=== PATIENT | female | born 1950 | race Caucasian/White ===

== ENCOUNTER 2018-09-02 10:00 | Outpatient (CLI) | payer MEDICARE, OTHER ==
--- NOTE | 2018-09-03 10:17 | DEXA Report ---
Reason: AGE-RELATED OSTEOPOROSIS W Procedure Date: 09/02/2018 Accession Number: [id number] / [id number] Procedure: DEX - Dexa Spine and/or Hip CPT Code: FULL RESULT: EXAM: Dexa Spine and/or Hip DATE: 09/02/2018 10:28 AM CLINICAL HISTORY: AGE-RELATED OSTEOPOROSIS W TECHNIQUE: Dual energy x-ray absorptiometry (DXA) was performed on a CQuotient System. Regions measured are the AP Spine, femoral neck, and if needed forearm. COMPARISON: None. In accordance with the International Society for Clinical Densitometry (ISCD) guidelines, data from previous exams may be reanalyzed using current recommendations and techniques. This is done to allow a more accurate basis for comparison with the current study. FINDINGS: The data for the lumbar spine is as follows: BMD (g/cm/cm) T-SCORE Z-SCORE REGION L1 0.727 -3.4 -2.9 L2 0.901 -2.5 -2.1 L3 0.997 -1.7 -1.3 L4 0.867 -2.8 -2.3 TOTAL 0.879 -2.5 -2.1 NOTE: All evaluable vertebrae are used for classification The data for the hip is as follows: BMD (g/cm/cm) T-SCORE Z-SCORE REGION Neck 0.535 -3.6 -2.8 TOTAL 0.552 -3.6 -3.2 NOTE: The femoral neck or total proximal femur, whichever is lowest, is used for classification. IMPRESSION: THE WHO CLASSIFICATION BASED ON THE INTERNATIONAL REFERENCE STANDARD IS OSTEOPOROSIS. THE FRACTURE RISK IS HIGH. RECOMMENDATION: Patients with diagnosis of osteoporosis or osteopenia should have regular bone mineral density assessment. For those eligible for Medicare, routine testing is allowed once every 2 years. Testing frequency can be increased for patients who have rapidly progressing disease or for those who are receiving medical therapy to restore bone mass. COMMENT: World Health Organization (WHO) definitions for osteoporosis and osteopenia: NORMAL BMD: T-score at -1.0 or higher, fracture risk is low OSTEOPENIA BMD: T-score between -1.0 and -2.5, fracture risk is increased. OSTEOPOROSIS BMD: T-score at -2.5 or lower, fracture risk is high. National Osteoporosis Foundation recommends: 1. Obtain adequate dietary calcium (at least 1200 mg per day) and vitamin D (400-800 international units per day). 2. Participate, as appropriate, in regular weightbearing and muscle-strengthening exercise. 3. Avoid tobacco use and reduce alcohol and caffeine intake. 4. For more detailed information see the website at www.NOF.org.
== END 2018-09-02 10:01 | disposition home or self-care (01) ==
LOC: DI 10:00
PROVIDERS: ATTEND Internal Medicine
DX: M81.0 Age-related osteoporosis without current pathological fracture (principal)
CPT/HCPCS: 77080

== ENCOUNTER 2019-04-10 14:32 | Outpatient (CLI) | payer MEDICARE, OTHER ==
[2019-04-10 15:04] LABS: CALCIUM 9.4 mg/dL (8.5-10.3); CREATININE 0.8 mg/dL (0.4-1.0)
== END 2019-04-10 14:33 | disposition home or self-care (01) ==
LOC: LAB 14:32
PROVIDERS: ATTEND Internal Medicine
DX: M81.0 Age-related osteoporosis without current pathological fracture (principal)
CPT/HCPCS: 36415; 80048; 82306

== ENCOUNTER 2020-01-12 11:43 | Outpatient (CLI) | payer MEDICARE, OTHER ==
[2020-01-12 12:01] LABS: BASOPHILS # (AUTO) 0.1 10^3/uL (0.0-0.1); EOSINOPHILS # (AUTO) 0.8 10^3/uL (0.0-0.7); EOSINOPHILS % (AUTO) 9.7 %; HGB - HEMOGLOBIN 15.8 g/dL (12.0-16.0); LYMPHOCYTES % (AUTO) 35.3 %; MEAN CORPUSCULAR HEMOGLOBIN 30.6 pg (27.0-31.0); MEAN CORPUSCULAR HGB CONC 33.7 g/dL (32.0-36.0); MEAN CORPUSCULAR VOLUME 90.7 fL (81.0-99.0); MEAN PLATELET VOLUME 11.1 fL (7.9-10.8); MONOCYTES # (AUTO) 0.7 10^3/uL (0.0-1.0); NEUTROPHILS # (AUTO) 3.8 10^3/uL (1.5-6.6); NEUTROPHILS % (AUTO) 45.3 %; PLT - PLATELET COUNT 249 10^3/uL (130-450); RED BLOOD COUNT 5.17 10^6/uL (4.20-5.40); RED CELL DISTRIBUTION WIDTH 12.5 % (12.0-15.0); WHITE BLOOD COUNT 8.4 x10^3/uL (4.8-10.8)
[2020-01-12 12:03] LABS: BILIRUBIN,URINE NEGATIVE (NEGATIVE); GLUCOSE, URINE (UA) NEGATIVE (NEGATIVE); KETONES,URINE (UA) NEGATIVE (NEGATIVE); LEUKOCYTE ESTERASE, URINE NEGATIVE (NEGATIVE); NITRITE,URINE NEGATIVE (NEGATIVE); OCCULT BLOOD,URINE NEGATIVE (NEGATIVE); PROTEIN,URINE NEGATIVE (NEGATIVE); UROBILINOGEN,URINE 0.2 (NORMAL) E.U./dL (NORMAL)
[2020-01-12 12:08] LABS: CLARITY,URINE CLEAR (CLEAR)
[2020-01-12 12:10] LABS: BACTERIA,URINE Few /HPF (None Seen); RBC,URINE None Seen /HPF (0-5); SQUAMOUS EPITHELIAL CELL,UR FEW Squamous (<= Few)
[2020-01-12 12:30] LABS: CALCIUM 9.7 mg/dL (8.5-10.3); CREATININE 0.8 mg/dL (0.4-1.0)
== END 2020-01-12 11:44 | disposition home or self-care (01) ==
LOC: LAB 11:43
PROVIDERS: ATTEND Orthopaedic Surgery Orthopaedic Surgery of the Spine
DX: N39.0 Urinary tract infection, site not specified (principal); Z01.812 Encounter for preprocedural laboratory examination; Z01.818 Encounter for other preprocedural examination
CPT/HCPCS: 36415; 80048; 81001; 85025; 87086; 93005

== ENCOUNTER 2022-03-01 08:00 | Outpatient (CLI) | payer MEDICARE, OTHER ==
[2022-03-01 16:19] LABS: BILIRUBIN,URINE NEGATIVE (NEGATIVE); GLUCOSE, URINE (UA) NEGATIVE (NEGATIVE); KETONES,URINE (UA) NEGATIVE (NEGATIVE); LEUKOCYTE ESTERASE, URINE SMALL (NEGATIVE); NITRITE,URINE NEGATIVE (NEGATIVE); OCCULT BLOOD,URINE SMALL (NEGATIVE); PROTEIN,URINE NEGATIVE (NEGATIVE); UROBILINOGEN,URINE 0.2 (NORMAL) E.U./dL (NORMAL)
[2022-03-01 16:23] LABS: CLARITY,URINE HAZY (CLEAR)
[2022-03-01 16:44] LABS: SQUAMOUS EPITHELIAL CELL,UR FEW Squamous (<= Few); WBC,URINE >25 /HPF (0-5)
[2022-03-01 16:45] LABS: BACTERIA,URINE Few /HPF (None Seen)
== END 2022-03-01 23:59 | disposition home or self-care (01) ==
LOC: LAB.R 08:00
PROVIDERS: ATTEND Internal Medicine
DX: N39.0 Urinary tract infection, site not specified (principal)
CPT/HCPCS: 81001; 81003; 87086

== ENCOUNTER 2022-09-04 10:27 | Day surgery (SDC) | payer MEDICARE, OTHER ==
[2022-09-04] MEDS ORDERED: LACTATED RINGERS 1,000 ML IV ONE (10:45)
--- NOTE | 2022-09-04 11:06 | ANESTHESIA ---
Pre-Anesthesia VS, & Labs - Diagnosis screening exam - Procedure colonoscopy Vital Signs: Temp Pulse Resp BP Pulse Ox O2 Flow Rate 36.1 C L 93 18 149/90 H 94 0 09/04/22 10:46 09/04/22 10:46 09/04/22 10:46 09/04/22 10:46 09/04/22 10:46 09/04/22 10:46 Height: 5 ft 2 in Weight (kg): 113.9 kg Body Mass Index: 45.9 BMI Classification: Morbidly Obese - NPO >8 hours - Is Patient ?: No Home Medications and Allergies Home Medications: Ambulatory Orders Denosumab [Prolia] 60 mg SUBQ ONCE 08/28/22 Sumatriptan Succ/Naproxen Sod [Treximet 85-500 mg Tablet] 50 mg PO PRN PRN 08/28/22 Denosumab [Prolia] 60 mg SUBQ ONCE 08/28/22 Sumatriptan Succ/Naproxen Sod [Treximet 85-500 mg Tablet] 50 mg PO PRN PRN 08/28/22 Allergies/Adverse Reactions: Allergies Allergy/AdvReac Type Severity Reaction Status Date / Time No Known Drug Allergies Allergy Verified 08/28/22 11:14 Anes History & Medical History - Anesthetic History Anesthesia Complications: reports: No previous complications - Medical History Cardiovascular: reports: None Pulmonary: reports: None Gastrointestinal: reports: GERD, Chronic diarrhea Urinary: reports: Incontinence, Chronic bladder infection Musculoskeletal: reports: Osteoporosis, Chronic back pain Endocrine/Autoimmune: reports: None Blood Disorders: reports: None Skin: reports: Other Smoking Status: Never smoker Psychosocial: reports: No issues indicated History of Cancer?: No - Surgical History General: reports: Colonoscopy Eyes Ears Nose Throat (EENT): reports: Tonsil/Adenoidectomy Gynecologic: reports: Tubal ligation Exam General: Alert, Oriented x3, Cooperative, No acute distress Dental: WNL Mouth Openin Fingerbreadth Neck Mobility: Normal Mallampati classification: III Thyromental Distance: less than 4 cm Mental/Cognitive Status: Alert/Oriented X3, Normal for patient Plan Anesthesia Type: General, Total IV Consent for Procedure(s) Verified and Reviewed: Yes Code Status: Attempt Resuscitation ASA classification: 3-Severe systemic disease Is this case an emergency?: No
[2022-09-04] MEDS ORDERED: PROPOFOL 500 MG/50 ML 500 MG/50 ML VIAL ONE (11:50)
[2022-09-04] MEDS ORDERED: LACTATED RINGERS 800 ML IV ONE (12:02)
[2022-09-04 12:11] VITALS: BP 125/61
--- NOTE | 2022-09-04 12:59 | ANESTHESIA POST OP EVALUATION ---
Anesthesia Post Eval - Post Anesthesia Eval Vitals: Last Vital Signs Temp 36.3 C L 09/04/22 11:57 Pulse 85 09/04/22 11:57 Resp 16 09/04/22 11:57 BP 125/61 09/04/22 11:57 Pulse Ox 96 09/04/22 11:57 O2 Flow Rate 0 09/04/22 10:46 CV Function Including HR & BP: Stable Pain Control: Satisfactory Nausea & Vomiting: Negative Mental Status: Baseline Respiratory Status: Airway Patent Hydration Status: Satisfactory Anesthesia Complications: None
== END 2022-09-04 10:28 | disposition home or self-care (01) ==
LOC: SDS 10:27
PROVIDERS: ATTEND Surgery
DX: Z12.11 Encounter for screening for malignant neoplasm of colon (principal); E66.01 Morbid (severe) obesity due to excess calories; Z68.42 Body mass index [BMI] 45.0-49.9, adult
CPT/HCPCS: G0121; J7120

== ENCOUNTER 2023-05-08 07:50 | Outpatient (CLI) | payer MEDICARE, OTHER ==
--- NOTE | 2023-05-08 11:37 | Ultrasound Report ---
PROCEDURE: Abdomen Limited INDICATIONS: ELEVATED LIVER ENSYMES TECHNIQUE: Real-time focused scanning was performed of the abdomen, with image documentation. COMPARISONS: None. FINDINGS: Liver: Liver is at the upper limits of normal measuring 16.6 cm. The liver is increased in echogenic ity. Gallbladder: No gallbladder wall thickening. Sludge ball versus gallbladder polyp measuring 2.0 x 2.1 cm. Biliary ducts: Intrahepatic bile ducts are non-dilated. Extrahepatic bile duct caliber measures 5.7 mm. Normal is 6-7 mm or less in diameter, or 10 mm or less post-cholecystectomy. Pancreas: Visualized portions of the pancreas are sonographically normal. Right kidney: Normal in size and echotexture. Right kidney measures 12.6 cm long. No hydronephrosis or nephrolithiasis. No solid masses. No complex renal cystic lesions which require follow-up. Aorta: Visualized aorta is normal in caliber at less than 3 cm. Mid and distal aorta are not visuali zed. IVC: Intrahepatic inferior vena cava is patent. Miscellaneous: No free abdominal fluid. IMPRESSION: 1.Gallbladder sludge ball versus polyp measuring 2.1 cm. Recommend short-term follow-up ultrasound or MRCP for further evaluation. 2.Hepatic steatosis. Reviewed by: Harpal Hewitt MD on 05/08/2023 11:35 AM PDT Approved by: Harpal Hewitt MD on 05/08/2023 11:35 AM PDT Station ID: [id number]
== END 2023-05-08 07:51 | disposition home or self-care (01) ==
LOC: DI 07:50
PROVIDERS: ATTEND Internal Medicine
DX: R74.01 Elevation of levels of liver transaminase levels (principal); R93.3 Abnormal findings on diagnostic imaging of other parts of digestive tract; K76.0 Fatty (change of) liver, not elsewhere classified

== ENCOUNTER 2023-08-16 08:32 | Outpatient (CLI) | payer MEDICARE, OTHER ==
--- NOTE | 2023-08-17 02:06 | Ultrasound Report ---
PROCEDURE: Abdomen Limited INDICATIONS: POLYP OF GALLBLADDER TECHNIQUE: Ultrasound of the abdominal right upper quadrant was obtained with image documentation. COMPARISONS: None. FINDINGS: Liver: Liver shows diffusely increased echogenicity without focal mass lesion. No intrahepatic duct al dilation. Gallbladder: Biliary echogenic sludge noted within the gallbladder. There is gallbladder wall thicke willie measuring 3.6 mm it. The gallbladder neck and there is an echogenic structure which may reflect sludge ball versus polyp. No shadowing calculi Common Bile Duct: 6.7 mm. Pancreas: Unremarkable as visualized. Right Kidney: Appropriate in size and echotexture. No evidence of hydronephrosis. No shadowing calc ford. No solid or cystic mass lesion. IMPRESSION: Echogenic structure in the gallbladder neck. Differential would be polyp versus sludge ball. Additional biliary sludge noted in the fundus Reviewed by: Kelechi Valdes MD on 08/17/2023 1:05 AM BUFFY Approved by: Kelehci Valdes MD on 08/17/2023 1:05 AM BUFFY Station ID: [id number]
== END 2023-08-16 08:33 | disposition home or self-care (01) ==
LOC: DI 08:32
PROVIDERS: ATTEND Internal Medicine
DX: K82.4 Cholesterolosis of gallbladder (principal)

== ENCOUNTER 2023-10-03 06:52 | Emergency (ER) | payer MEDICARE, OTHER ==
[2023-10-03 07:54] LABS: BASOPHILS # (AUTO) 0.1 10^3/uL (0.0-0.1); BASOPHILS % (AUTO) 0.5 %; EOSINOPHILS # (AUTO) 0.4 10^3/uL (0.0-0.7); EOSINOPHILS % (AUTO) 3.9 %; HCT - HEMATOCRIT 47.6 % (37.0-47.0); HGB - HEMOGLOBIN 15.8 g/dL (12.0-16.0); LYMPHOCYTES # (AUTO) 2.7 10^3/uL (1.5-3.5); LYMPHOCYTES % (AUTO) 28.4 %; MEAN CORPUSCULAR HEMOGLOBIN 28.7 pg (27.0-31.0); MEAN CORPUSCULAR HGB CONC 33.2 g/dL (32.0-36.0); MEAN CORPUSCULAR VOLUME 86.4 fL (81.0-99.0); MONOCYTES # (AUTO) 0.6 10^3/uL (0.0-1.0); MONOCYTES % (AUTO) 6.5 %; NEUTROPHILS # (AUTO) 5.7 10^3/uL (1.5-6.6); NEUTROPHILS % (AUTO) 60.3 %; PLT - PLATELET COUNT 247 10^3/uL (130-450); RED BLOOD COUNT 5.51 10^6/uL (4.20-5.40); RED CELL DISTRIBUTION WIDTH 13.3 % (12.0-15.0); WHITE BLOOD COUNT 9.4 x10^3/uL (4.8-10.8)
--- NOTE | 2023-10-03 08:07 | ED Physician Documentation ---
PD HPI ABD PAIN - Stated complaint Stated Complaint: ABD/BACK PX,VOMITING - Chief complaint Chief Complaint: Abd Pain - History obtained from History obtained from: Patient - History of Present Illness Timing - onset: How many days ago (onset 2 am during night, awakening her.) Timing - details: Abrupt onset, Still present Quality: Aching, Dull, Pain. No: Cramping Location: Epigastric, LUQ Radiation: Lower back Associated symptoms: Nausea, Diarrhea. 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 HEENT: Tonsil/Adenoidectomy - Present Medications Home Medications: Ambulatory Orders Medication Instructions Recorded Confirmed Denosumab [Prolia] 60 mg SUBQ ONCE 08/28/22 10/03/23 Sumatriptan Succ/Naproxen Sod 50 mg PO PRN PRN 08/28/22 10/03/23 [Treximet 85-500 mg Tablet] Dicyclomine [Bentyl] 10 mg PO TID PRN #15 cap 10/03/23 HYDROcod/ACETAM 5/325 [[place] 5/325] 1 ea PO Q6H PRN #12 tablet 10/03/23 Pantoprazole [Protonix] 40 mg PO DAILY 30 Days #30 tablet 10/03/23 - Allergies Allergies/Adverse Reactions: Allergies Allergy/AdvReac Type Severity Reaction Status Date / Time No Known Drug Allergies Allergy Verified 10/03/23 07:14 - Social History Does the pt smoke?: No Smoking Status: Never smoker Does the pt drink ETOH?: No Does the pt have substance abuse?: No - Immunizations Immunizations are current?: No Immunizations: TDAP >10years/unknown - POLST Patient has POLST: No PD ED PE NORMAL - Vitals Vital signs reviewed: Yes - General General: Alert and oriented X 3, Well developed/nourished - HEENT HEENT: Ears normal, Pharynx benign - Neck Neck: Supple, no meningeal sign, No adenopathy - Cardiac Cardiac: No: RRR - Derm Derm: Normal color, Warm and dry Results - Vitals Vitals: Vital Signs - 24 hr 10/03/23 10/03/23 10/03/23 07:08 09:08 11:00 Temperature 36.7 C Heart Rate 70 88 82 Respiratory 18 17 17 Rate Blood Pressure 166/92 H 158/78 H 167/86 H O2 Saturation 100 97 98 Oxygen O2 Source Room air - Labs Labs: Laboratory Tests 10/03/23 10/03/23 10/03/23 07:30 07:30 07:30 WBC 9.4 RBC 5.51 H Hgb 15.8 Hct 47.6 H MCV 86.4 MCH 28.7 MCHC 33.2 RDW 13.3 Plt Count 247 MPV 12.0 H Neut # (Auto) 5.7 Lymph # (Auto) 2.7 Coffey # (Auto) 0.6 Eos # (Auto) 0.4 Baso # (Auto) 0.1 Absolute Nucleated RBC 0.00 Nucleated RBC % 0.0 Sodium 137 Potassium 3.7 Chloride 104 Carbon Dioxide 25 Anion Gap 8.0 BUN 17 Creatinine 0.8 Estimated GFR (MDRD) 71 L Glucose 131 H Calcium 9.6 Magnesium 1.9 Total Bilirubin 0.6 AST 26 ALT 32 Alkaline Phosphatase 65 Total Protein 7.0 Albumin 4.3 Globulin 2.7 Albumin/Globulin Ratio 1.6 Lipase 422 H Urine Color Urine Clarity Urine pH Ur Specific Rupert Urine Protein Urine Glucose (UA) Urine Ketones Urine Occult Blood Urine Nitrite Urine Bilirubin Urine Urobilinogen Ur Leukocyte Esterase Ur Microscopic Review Urine Culture Comments Ethyl Alcohol 10/03/23 10/03/23 07:40 09:24 WBC RBC Hgb Hct MCV MCH MCHC RDW Plt Count MPV Neut # (Auto) Lymph # (Auto) Coffey # (Auto) Eos # (Auto) Baso # (Auto) Absolute Nucleated RBC Nucleated RBC % Sodium Potassium Chloride Carbon Dioxide Anion Gap BUN Creatinine Estimated GFR (MDRD) Glucose Calcium Magnesium Total Bilirubin AST ALT Alkaline Phosphatase Total Protein Albumin Globulin Albumin/Globulin Ratio Lipase Urine Color LT. YELLOW Urine Clarity CLEAR Urine pH 6.5 Ur Specific Rupert 1.010 Urine Protein NEGATIVE Urine Glucose (UA) NEGATIVE Urine Ketones NEGATIVE Urine Occult Blood NEGATIVE Urine Nitrite NEGATIVE Urine Bilirubin NEGATIVE Urine Urobilinogen 0.2 (NORMAL) Ur Leukocyte Esterase NEGATIVE Ur Microscopic Review NOT INDICATED Urine Culture Comments NOT INDICATED Ethyl Alcohol < 10.0 - Rads (name of study) abd/pel CT Relevant Findings:: Prelim report reviewed (no acute process to account for pain. Fatty liver incidental. Pancreas normal.) PD Medical Decision Making - ED course Complexity details: reviewed results (CT showing no obvious cause for the pain. Fatty liver. pnacreas is normal. Lipase on blood testing 486, so seems pancreatitis. No meds to prokoke it, no alcohol use, no meds to consider effect (not found in [facility]). ), re-evaluated patient (pain signficantly improved to just minimal after IV fluids, toradl, zofran and dilaudid. ), considered differential (upper abd pain - abrupt onset. consider gallbladder, pancreatic, ulcer, GE viral, etc. Get labs, UA, and CT. ), d/w patient Departure - Departure Disposition: 01 Home, Self Care Clinical Impression: Acute upper abdominal pain, Elevated lipase Pancreatitis Qualifiers: Pancreatitis type: unspecified pancreatitis type Acute pancreatitis co mplication: no infection or necrosis Condition: Stable Record reviewed to determine appropriate education?: Yes Instructions: ED Epigastric Pain [facility] Follow-Up: Carolina Ocasio MD [Primary Care Provider] - Prescriptions: Dicyclomine [Bentyl] 10 mg PO TID PRN #15 cap PRN Reason: Abdominal Pain HYDROcod/ACETAM 5/325 [[place] 5/325] 1 ea PO Q6H PRN #12 tablet PRN Reason: Pain Pantoprazole [Protonix] 40 mg PO DAILY 30 Days #30 tablet Comments: Your CT scan did not show any obvious acute abnormality. You do have some distention of the gallbladder but no signs of wall thickening or inflammation of it. They commented appear similar to your ultrasound. Had recently. They do not see the polyp per se. Your pancreas appeared normal on the scan. On blood test you do have some elevation of your lipase which is a pancreatic enzyme. This suggests possibly some inflammation of that and that could account for the pain you are having. Causes of this could be there had been a gallbladder spasm which would sound like the pain you had and cause some back pressure and inflammation to the pancreas but not enough to show on the CT scan as a primary pancreatitis. For the episode today, I would suggest clear liquids only and no fatty foods for 1 to 2 days to allow less stimulation of the pancreas and gallbladder. Tylenol ibuprofen if needed for mild pains. You could then use antispasmodic of dicyclomine or pain medicine of hydrocodone to help with pains. You said you had some nausea medicine at home. Use it every 6-8 hours if needed for nausea. Your general description of less appetite and upset stomach with eating for the last month or more could suggest something different such as ulcer or gastritis. I would suggest pantoprazole daily for the next several weeks to see if acid reduction medicine helps with your symptoms generally. I sent your prescriptions to your preferred pharmacy. Follow-up with your primary care if not improved well over the next several days and return to the ER if needed. Follow-up otherwise for repeat gallbladder ultrasound etc. as intended. Forms: PCP List Discharge Date/Time: 10/03/23 11:30
[2023-10-03 08:08] LABS: ALBUMIN 4.3 g/dL (3.2-5.5); ALBUMIN/GLOBULIN RATIO 1.6 (1.0-2.2); BILIRUBIN,TOTAL 0.6 mg/dL (0.2-1.0); CALCIUM 9.6 mg/dL (8.5-10.3); CREATININE 0.8 mg/dL (0.6-1.3); POTASSIUM 3.7 mmol/L (3.5-4.5)
[2023-10-03] MEDS: SODIUM CHLORIDE 0.9% 1,000 ML IV STA (08:28)
[2023-10-03] MEDS ORDERED: iohexoL-300 100 ML VIAL ONE (08:33)
[2023-10-03] MEDS: ONDANSETRON 4 MG/2 ML VIAL IVP STA (08:34)
[2023-10-03] MEDS: KETOROLAC 15 MG/ML VIAL IVP STA (08:34)
[2023-10-03] MEDS: HYDROmorphone 1 MG/ML CARPUJECT IVP STA ×2 (08:35→11:42)
[2023-10-03 09:34] LABS: BILIRUBIN,URINE NEGATIVE (NEGATIVE); GLUCOSE, URINE (UA) NEGATIVE (NEGATIVE); KETONES,URINE (UA) NEGATIVE (NEGATIVE); LEUKOCYTE ESTERASE, URINE NEGATIVE (NEGATIVE); NITRITE,URINE NEGATIVE (NEGATIVE); OCCULT BLOOD,URINE NEGATIVE (NEGATIVE); PH,URINE 6.5 PH (5.0-7.5); PROTEIN,URINE NEGATIVE (NEGATIVE); UROBILINOGEN,URINE 0.2 (NORMAL) E.U./dL (NORMAL)
[2023-10-03 09:35] LABS: CLARITY,URINE CLEAR (CLEAR)
--- NOTE | 2023-10-03 10:03 | CT Report ---
PROCEDURE: Abdomen/Pelvis W INDICATIONS: RUQ to back pain onset overnight CONTRAST: Omni 300 100ml TECHNIQUE: After the administration of intravenous contrast, a CT scan of the abdomen and pelvis was performed. Images were recorded and evaluated at appropriate window settings. Reformats: coronal and sagittal. F or radiation dose reduction, the following was used: automated exposure control, adjustment of mA and /or kV according to patient size. COMPARISON: Right upper quadrant ultrasound dated 08/16/2023 FINDINGS: Image quality: Diagnostic. Lower chest: Unremarkable. Liver: No solid mass. Mild diffuse hepatic steatosis.. Gallbladder: Gallbladder is distended without significant gallbladder wall thickening noted. Biliary tree: Common duct measures up to 8 mm. On previous ultrasound it measured 6.7 mm. Spleen: No splenomegaly. Pancreas: No pancreatic ductal dilation. Adrenals: No adrenal nodule. Kidneys and ureters: No hydronephrosis. Bilateral extrarenal pelves. Mild prominence of both ureters. No renal cystic lesion which requires follow up. No solid mass. Stomach, bowel and peritoneum: No gastric or small bowel dilation. No abnormal wall thickening. No pa thologic free fluid. Lymph nodes: No central or retroperitoneal adenopathy. Vessels: No infrarenal aortic aneurysm. Patent portal vein. PELVIS Reproductive organs: Unremarkable. Bladder: No abnormal wall thickening, accounting for underdistention. Pelvic lymph nodes: No pelvic adenopathy by size criteria. Bones: No aggressive osseous abnormality. Lower lumbar decompression and posterior lateral shil[place] and pe dicle screw fixation. Large superior endplate L3 Schmorl's node. Other: No significant ventral or inguinal hernia. IMPRESSION: 1. Gallbladder is distended without significant gallbladder wall thickening. Common duct measures up to 8 mm, upper limits of normal, similar to the previous ultrasound. 2. Mild diffuse hepatic steatosis. Reviewed by: Cleveland Bernstein MD on 10/03/2023 10:02 AM PDT Approved by: Cleveland Bernstein MD on 10/03/2023 10:02 AM PDT Station ID: [id number]
[2023-10-03] MEDS: iohexoL-300 100 ML VIAL IVP ONE (10:16)
[2023-10-03 11:14] VITALS: BP 167/86; O2SAT 98
[2023-10-03] MEDS: PROCHLORPERAZINE 10 MG/2 ML VIAL IVP STA (11:41)
[2023-10-03] MEDS: FAMOTIDINE 20 MG/2 ML VIAL IVP STA (11:41)
== END 2023-10-03 11:30 | disposition home or self-care (01) ==
LOC: ED 06:52
DX: R10.13 Epigastric pain (principal); R10.12 Left upper quadrant pain; R10.11 Right upper quadrant pain; R74.8 Abnormal levels of other serum enzymes
CPT/HCPCS: 36415; 74177; 80053; 81003; 83690; 83735; 85025; 96374; 96375; 99284; G0480; J1170; Q9967; 81001; 82077; 87086

== ENCOUNTER 2024-06-21 03:49 | Inpatient (IN) ==
[2024-06-21] MEDS: fentaNYL 100 MCG/2 ML VIAL IVP PRN (05:53)
[2024-06-21] MEDS: ONDANSETRON 4 MG/2 ML VIAL IVP STA (05:53)
[2024-06-21 05:54] LABS: BASOPHILS % (AUTO) 0.2 %; EOSINOPHILS % (AUTO) 0.1 %; HCT - HEMATOCRIT 48.1 % (37.0-47.0); HGB - HEMOGLOBIN 15.8 g/dL (12.0-16.0); LYMPHOCYTES # (AUTO) 1.5 10^3/uL (1.5-3.5); LYMPHOCYTES % (AUTO) 14.1 %; MEAN CORPUSCULAR HEMOGLOBIN 29.8 pg (27.0-31.0); MEAN CORPUSCULAR HGB CONC 32.8 g/dL (32.0-36.0); MEAN CORPUSCULAR VOLUME 90.6 fL (81.0-99.0); MEAN PLATELET VOLUME 11.1 fL (7.9-10.8); MONOCYTES # (AUTO) 0.5 10^3/uL (0.0-1.0); MONOCYTES % (AUTO) 4.4 %; NEUTROPHILS # (AUTO) 8.9 10^3/uL (1.5-6.6); NEUTROPHILS % (AUTO) 80.7 %; PLT - PLATELET COUNT 231 10^3/uL (130-450); RED BLOOD COUNT 5.31 10^6/uL (4.20-5.40); RED CELL DISTRIBUTION WIDTH 12.4 % (12.0-15.0)
[2024-06-21 06:17] LABS: ALBUMIN 4.4 g/dL (3.2-5.5); ALBUMIN/GLOBULIN RATIO 1.6 (1.0-2.2); ALKALINE PHOSPHATASE 101 IU/L (42-121); ALT ALANINE AMINOTRANSFERASE 314 IU/L (10-60); AST ASPARTATE AMINOTRANSFERASE 510 IU/L (10-42); BILIRUBIN,TOTAL 2.4 mg/dL (0.2-1.0); BUN - BLOOD UREA NITROGEN 14 mg/dL (6-20); CALCIUM 9.3 mg/dL (8.5-10.3); CARBON DIOXIDE - CO2 25 mmol/L (21-32); CHLORIDE 106 mmol/L (101-111); CREATININE 0.8 mg/dL (0.6-1.3); GFR - MDRD 71 (>89); GLUCOSE 162 mg/dL (74-104); SODIUM 138 mmol/L (135-145); TOTAL PROTEIN 7.2 g/dL (6.4-8.9)
[2024-06-21] MEDS ORDERED: iohexoL-300 100 ML VIAL ONE (06:20)
[2024-06-21 06:33] LABS: LIPASE > 6000 U/L (11-82)
[2024-06-21] MEDS: iohexoL-300 100 ML VIAL IVP ONE (06:59)
--- NOTE | 2024-06-21 07:00 | ED Physician Documentation ---
History of Present Illness Stated complaint Stated Complaint: Chief complaint Chief Complaint: Abd Pain Additonal information Additional information: 74-year-old female presents with right upper quadrant and epigastric abdominal pain. Pain ongoing since 4:00 yesterday. Reports similar pain in the past associated with "gallbladder problems" but is not able to elucidate further what this means. States that the pain happened several years ago. Pain today is associate with nausea vomiting. Denies excessive alcohol intake, fatty foods, known history of peptic ulcer Disease or gastric reflux. [place] Coma Scale Assess Eye opening: Spontaneous Verbal response: Oriented Motor response: Obeys Commands Total score: 15 Review of Systems Status of ROS: 10 or more systems reviewed and unremarkable except as noted in history and below Gastrointestinal Reports: Abdominal pain, Nausea and Vomiting Meds/Allgy Home Medications Ambulatory Orders Medication Instructions Recorded Confirmed denosumab 60 mg/mL subcutaneous 60 mg subcut ONCE 08/1806/21/24 syringe (Prolia) acetaminophen 325 mg tablet (Pain 325 mg PO Q12H PRN p ain 06/21/24 06/21/24 Relief (acetaminophen)) ibuprofen 200 mg tablet 200 mg PO Q12H PRN pain 05/0 06/1206/21/24 sumatriptan succinate 50 mg tablet 50 mg PO ONCE PRN m igraine headache 06/21/24 06/21/24 Allergies Allergies Allergy/AdvReac Type Severity Reaction Status Date / Time No Known Drug Allergies Allergy Verified 02/22/24 11:38 PFSH Active Problems All Active Problems (Updated 06/22/24 @ 16:45 by GOLDEN Raymond) Hypokalemia (Acute) Acute gallstone pancreatitis (Acute) Chronic back pain (Acute) Acute cholecystitis (Acute) Medical History Medical History (Updated 06/22/24 @ 16:45 by GOLDEN Raymond) Osteoporosis History of migraine headaches Surgical History Surgical History (Updated 06/21/24 @ 14:22 by Matilde Lara DO) History of tubal ligation History of History of spinal fusion (~2022) L4-S1 (x2 surgeries) Social History Social History Smoking Status: Never smoker Second hand tobacco smoke exposure: No Do you dip or chew tobacco?: No Do you vape?: No Relationship: Level: Independent Home Mobility Equipment: Walker Do you feel safe in your home environment?: Yes Suffered physical, verbal, emotional, or financial abuse?: No History of Abuse: No POLST Patient has POLST: No Exam Exam Vital Signs: Vital Signs x48h Temp Pulse Resp BP Pulse Ox 06/21/24 06:41 78 22 141/77 H 99 06/21/24 04:42 81 22 160/87 H 99 06/21/24 04:38 36.8 C 81 22 167/69 H 99 Constitutional normal general appearance Patient in mild distress. 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 Relevant findings are: Sinus rhythm with rate 68 bpm. Normal axis. Normal TX, QRS, QTc intervals. No ST segment elevations or T wave inversions. Labs Labs: Laboratory Tests 06/21/24 06/21/24 05:41 06:00 WBC 11.0 H RBC 5.31 Hgb 15.8 Hct 48.1 H MCV 90.6 MCH 29.8 MCHC 32.8 RDW 12.4 Plt Count 231 MPV 11.1 H Neut # (Auto) 8.9 H Lymph # (Auto) 1.5 Cobb # (Auto) 0.5 Eos # (Auto) 0.0 Baso # (Auto) 0.0 Absolute Nucleated RBC 0.00 Nucleated RBC % 0.0 Sodium 138 Potassium 4.0 Chloride 106 Carbon Dioxide 25 Anion Gap 7.0 BUN 14 Creatinine 0.8 Estimated GFR (MDRD) 71 L Glucose 162 H Lactic Acid 1.7 Calcium 9.3 Total Bilirubin 2.4 H AST 510 H ALT 314 H Alkaline Phosphatase 101 Troponin I High Sens 4.4 Total Protein 7.2 Albumin 4.4 Globulin 2.8 Albumin/Globulin Ratio 1.6 Lipase > 6000 H PD Medical Decision Making ED course Complexity details: re-evaluated patient, considered differential and d/w patient ED course: 74 yo with abd pain, RUQ and epigastric tenderness. Labs consistant with pancreatitis with likely obstruction of CBD. CT and US pending. Given medicatin for pain control. Sighning out to on coming physician, see their documentation for further detail Discharge Plan Discharge Patient Disposition: 66 [facility] DC/Xfer Clinical Impression: Pancreatitis, Acute cholecystitis Interventions: ED Admission Assessment Last Done: 06/21/24 12:54
[2024-06-21] MEDS: cefTRIAXone 1 GM in SODIUM CHLORIDE 0.9% MINIBAG 100 ML IV STA (07:18)
[2024-06-21] MEDS: metroNIDAZOLE 500 MG/100 ML 500 MG/100 ML BAG IV ONE (07:51)
[2024-06-21] MEDS: HYDROmorphone 0.5 MG/0.5 ML SYRINGE IVP STA (09:10)
--- NOTE | 2024-06-21 09:23 | CT Report ---
PROCEDURE: CT Abdomen/Pelvis W INDICATIONS: RUQ abd pain CONTRAST: OMNI 300, 100 TECHNIQUE: After the administration of intravenous contrast, a CT scan of the abdomen and pelvis was performed. Images were recorded and evaluated at appropriate window settings. Reformats: coronal and sagittal. F or radiation dose reduction, the following was used: automated exposure control, adjustment of mA and /or kV according to patient size. COMPARISON: CT abdomen and pelvis 10/03/2023. Abdominal ultrasound 08/16/2023. FINDINGS: Image quality: Diagnostic. Lower chest: Unremarkable. Liver: No solid mass. Suspect hepatic steatosis. Gallbladder: Increased conspicuity of the gallbladder wall. There are small layering calcified gallst ones at the fundus. Pericholecystic fluid is present, (/). Biliary tree: Within normal limits. Spleen: No splenomegaly. Pancreas: No pancreatic ductal dilation. Inflammatory change and fluid adjacent to the tail the pancr eas, (4/41). No loculated fluid collection. The pancreas enhances uniformly. Adrenals: No adrenal nodule. Kidneys and ureters: No hydronephrosis. No renal cystic lesion which requires follow up. No solid mas s. Stomach, bowel and peritoneum: There is inflammatory change about the second and third portions of th e duodenum. This is demonstrable by fat stranding and free fluid. No loculated fluid collection. No s mall bowel obstruction. Normal appendix. Stomach is not distended. No pneumoperitoneum. Lymph nodes: No central or retroperitoneal adenopathy. Vessels: No infrarenal aortic aneurysm. Patent portal vein. PELVIS Reproductive organs: Anteverted uterus. Bladder: No abnormal wall thickening. No stone. Pelvic lymph nodes: No pelvic adenopathy by size criteria. Bones: No aggressive osseous abnormality. L4-S1 pedicle screw fixation with intervertebral body space rs. Other: No significant ventral or inguinal hernia. IMPRESSION: 1. Inflammatory change about the pancreas. Suspect acute interstitial edematous pancreatitis. No locu lated fluid collection. 2. Pericholecystic fluid. Gallstones at the fundus. Findings raising the possibility of acute cholecy stitis. Changes could be secondary reactive. -Gallbladder ultrasound may be helpful for further evaluation. 3. Inflammatory change at the second and third portions of the duodenum in keeping with duodenitis. No significant discrepancy with the overnight preliminary interpretation. Discussed with emergency room provider. Reviewed by: Kieran Berry MD on 06/21/2024 9:22 AM PDT Approved by: Kieran Berry MD on 06/21/2024 9:22 AM PDT Station ID: [id number]
[2024-06-21] MEDS: HYDROmorphone 1 MG/ML SYRINGE IVP STA (10:52)
--- NOTE | 2024-06-21 11:18 | Ultrasound Report ---
PROCEDURE: US Abdomen Limited INDICATIONS: Gallstone pancreatitis, likely choledocholithiasis TECHNIQUE: Real-time focused scanning was performed of the abdomen, with image documentation. COMPARISONS: CT from same date. FINDINGS: Liver: Echogenic liver with mildly enlarged size measuring 15.9 cm. Gallbladder: Multiple gallstones within the gallbladder with stones at the neck of the gallbladder. T he gallbladder wall measures 8 mm. There is pericholecystic fluid. Biliary ducts: Intrahepatic bile ducts are non-dilated. Cystic duct caliber measures 8 mm. Pancreas: The pancreas is poorly visualized however this large and edematous with some peripancreati c fluid. IVC: Intrahepatic inferior vena cava is patent. Miscellaneous: No free abdominal fluid. IMPRESSION: Acute cholecystitis. Edematous pancreas with peripancreatic edema consistent with pancreatitis. Cystic duct measures 8 mm without distal stone identified by ultrasound. Reviewed by: Ld Ortega MD on 06/21/2024 10:16 AM BUFFY Approved by: Ld Ortega MD on 06/21/2024 10:16 AM BUFFY Station ID: [id number]
--- NOTE | 2024-06-21 11:43 | ED Physician Documentation ---
ED Addendum Addendum Addendum: I received signout from this patient from the overnight physician. In short, this patient presents with epigastric pain. There is concern for pancreatitis with elevated lipase and possible choledocholithiasis due to elevated liver enzymes. RUQ US was obtained and showed evidence of acute cholecystitis withou CBD dilation. I spoke to general surgeon Dr. Lara who recommended medicine admission and eventual cholecystectomy. Patient has already been given antibiotics for possible cholecystitis with ceftriaxone and metronidazole. She will be admitted to the medicine service for possible MRCP to fully evaluate for possible choledocholithiasis. She is afebrile without evidence of sepsis. Discharge Plan Discharge Patient Disposition: 68 [facility] DC/Xfer Clinical Impression: Pancreatitis, Acute cholecystitis
--- NOTE | 2024-06-21 12:43 | HISTORY & PHYSICAL EXAMINATION ---
Chief Complaint Chief Complaint Chief Complaint: abdominal pain History of Present Illness Admitted From Admitted From:: home History Obtained From History obtained from: patient History of Present Illness HPI Comment/Other: 74-year-old female who presents to the emergency department today with worsening abdominal pain for approximately 24 hours. The pain is in the epigastrium. She states that she has had a worse diet in the last week or so. She knows she is supposed to stay away from fatty foods and spicy foods but unfortunately she had several meals that were outside of these parameters in the last week. Yesterday afternoon about 4 PM the pain became very bad. It is in her epigastrium and into the right and left upper quadrants. She also has noted some radiation into her back. She has not had any fevers she is having nausea without vomiting. She has noted over the last few years that her stools have been industrial/organizational psychologist in color. She is also known that she has had some sort of a gallbladder problem but it seems to get a little bit worse and then she is better with her diet and it gets a little bit better and she is able to ignore it. She also has a history of hepatic steatosis. She has a history of metformin spine disease. She has had several surgeries. She has chronic weakness of her lower extremities and she walks with a walker. It is been like this for 11 years. She has chronic urinary incontinence. Her surgical history consists of a and tubal ligation. L4-S1 spinal fusion- she has had multiple spine surgeries and has residual lower ext weakness as a result. She does not have any chronic neurogenic bowel or bladder issues She denies heart and lung disease. Her mother had a cholecystectomy She lives with her daughter. She does not smoke. she does not drink alcohol. she has no tobacco history. she does not use cannabis. she drives, and walks daily [place] [employer] and swims 3 times a week in the pool there. Code status: Full code. daughter Rosita Flaherty would make her medical decsions if she were unable to do so. Meds/Allgy Home Medications Ambulatory Orders Medication Instructions Recorded Confirmed denosumab 60 mg/mL subcutaneous 60 mg subcut ONCE 08/28/22 10/03/23 syringe (Prolia) sumatriptan 85 mg-naproxen 500 mg 50 mg PO PRN PRN As Needed Per 08/28/22 10/03/23 tablet (Treximet) Provider Orders dicyclomine 10 mg capsule 10 mg PO TID PRN Abdominal Pain 10/03/23 #15 caps hydrocodone 5 mg-acetaminophen 325 1 ea PO Q6H PRN Pain #12 tabs 10/03/23 mg tablet pantoprazole 40 mg tablet,delayed 40 mg PO DAILY 30 days #30 tabs 10/03/23 release cephalexin 500 mg capsule 500 mg PO QID 5 days #20 caps 02/22/24 doxycycline hyclate 100 mg capsule 100 mg PO BID 5 days #10 caps 02/22/24 terbinafine HCl 1 % topical cream 1 applic topical BID #15 grams 02/22/24 Allergies Allergies Allergy/AdvReac Type Severity Reaction Status Date / Time No Known Drug Allergies Allergy Verified 02/22/24 11:38 PFSH Active Problems All Active Problems (Updated 06/21/24 @ 14:22 by Matilde Lara DO) Acute gallstone pancreatitis (Acute) Chronic back pain (Acute) Acute cholecystitis (Acute) Medical History Medical History (Updated 06/21/24 @ 14:22 by Matilde Lara DO) Osteoporosis History of migraine headaches Surgical History Surgical History (Updated 06/21/24 @ 14:22 by Matilde Lara DO) History of tubal ligation History of History of spinal fusion (~2022) L4-S1 (x2 surgeries) Social History Social History Smoking Status: Never smoker Relationship: Do you feel safe in your home environment?: Yes Suffered physical, verbal, emotional, or financial abuse?: No History of Abuse: No POLST Patient has POLST: No Review of Systems Status of ROS: 10 or more systems reviewed and unremarkable except as noted in history and below Constitutional Reports: Fatigue; Denies: Fever or Chills Eyes Reports: Change in vision Cardiovascular Denies: chest pain, palpitations, edema, swelling of feet/ankles or shortness of breath with exertion Respiratory Reports: Pain on inspiration; Denies: Shortness of breath Gastrointestinal Reports: Abdominal pain, Nausea and White/light colored stool (industrial/organizational psychologist in color- yellow); Denies: Vomiting, Constipation, Change in bowel habits or Fatty stool Genitourinary Reports: Urinary incontinence (chronic- wears a pad. no choluria) Musculoskeletal Reports: Back pain (chronic) Neurological Reports: Other (chronic leg weakness, right >Left); Denies: Headache Endocrine Reports: Fatigue Prior Level of Functionality: drives, walks with a walker. performs all her own ADLs. Goood exercise tolerance without chest pain or unusual dyspnea. Walks with her dogs daily and swims 3x weekly. Exam Exam Vital Signs: Vital Signs x48h Temp Pulse Resp BP BP Pulse Ox 06/21/24 13:33 36.9 C 18 153/80 H 99 06/21/24 12:54 78 16 142/82 H 98 06/21/24 11:57 85 16 144/65 H 98 06/21/24 10:00 71 18 188/87 H 98 06/21/24 08:00 74 15 142/88 H 99 Constitutional normal general appearance and no apparent distress HENMT normocephalic, hearing grossly normal bilaterally and oral mucous membranes normal Eyes conjunctivae normal and no scleral icterus Neck/C-Spine visual inspection normal and trachea midline Chest inspection of chest normal Respiratory breath sounds equal bilaterally, normal respiratory effort and clear to auscultation bilaterally Cardiovascular normal heart rate noted and regular rhythm noted Gastrointestinal abdomen normal to inspection (obese) and abdomen soft to palpation tenderness in the epigastrium +Ruggiero's sign Back/Pelvis spine normal to inspection Extremities normal to inspection, normal to palpation and no tenderness Neurology oil agent II-XII intact and GCS 15 Psychiatry mental status grossly normal, oriented x3 and thought process normal Skin skin color normal Conclusion/Plan Problem List (1) Pancreatitis: Plan: presents to the ED with epigstric abdominal pain since about 4pm on day prior, after several episodes of non adherance to a low fat non spicy diet. she has radiation of her pain to her back. She is nauseated. She has inflammation around her pancreatitis on CT of the abdomen and her lipase is >6000. there is no biliary ductal dilation on imaging. She does have an elevated bili of 2.4 indicating probable biliary pancreatitis. I have ordered repeat CMP in the AM. Dr Lara would like repeat lipase in the AM. I have placed this patient on a clear liquid diet with supplemental IVF. I have ordered medications for pain and nausea. I have ordered MRCP of the abdomen to further investigate for choledocholithiasis. (2) Acute cholecystitis: Plan: She has epigastric and RUQ abdominal pain w nausea. She has not vomited. she has a leukocytosis of 11. she has pericholecystic fluid seen on CT of the abdomen. She has multiple gallstones in the neck of the gallbladder without ductal dilation. I will repeat CBC in the AM. I have continued rocephin and flagyl which were started in the ED. I have discussed this patient with Dr Lara of general surgery. This patient would benefit from cholecystectomy to treat her cholecystitis, once her biliary pancreatitis is somewhat improved. She will be followed by general surgery. (3) Chronic back pain: Plan: s/p spinal fusion. She is not on any chronic medications, aside from tylenol and ibuprofen as needed. She is dependent on a walker for ambulation ,but otherwise does well and is independent in her functioning. Plan Admission for pancreatitis with elevated lipase, this is likely biliary pancreatitis. MRCP to evaluate for choledocholithiasis. She also has acute cholecystitis. I have placed her on rocephin and flagyl to treat this and consulted with general surgery for cholecystectomy . I have spent 78 minutes in the care of this patient today. This includes time [id number], review and ordering of diagnostic imaging and laboratory studies and consultation with other providers. Monitoring the patient's signs symptoms, evaluation of medication effectiveness and patient's response to treatment. Lab Results Lab results reviewed: Yes 06/21/24 05:41 06/21/24 05:41 EKG Results EKG Findings: sinus rhythm. Core Measures Anticipated LOS I expect patient to be DC'd or transferred within 96 hours.: Yes DVT/VTE - Prophylaxis VTE/DVT Device ordered at admit?: Yes VTE/DVT Prophylaxis med ordered at admit?: Yes
[2024-06-21] MEDS ORDERED: SODIUM CHLORIDE FLUSH 0.9% 10 ML SYRINGE IVP PRN (12:56)
[2024-06-21] MEDS: metroNIDAZOLE 500 MG/100 ML 500 MG/100 ML BAG IV SCH (13:46)
[2024-06-21] MEDS: SODIUM CHLORIDE 0.9% 1,000 ML IV SCH (13:47)
--- NOTE | 2024-06-21 14:05 | CONSULTATION NOTE ---
History of Present Illness History of Present Illness HPI Comment/Other: 74F admitted this afternoon with gallstone pancreatitis to the Hospitalist service. She started having epigastric pain and nausea about 24hrs ago. She had emesis x1, one loose stool but no ongoing diarrhea. No fevers. She has had 2-3 episodes of similar but less severe epigastric pain that radiates to the back over the last year, x2 ED visits but no admissions. RUQUS x2 showing sludge and CT abd/pel x1 showing GB distention. [place] episode likely associated with pancreatitis as her Lipase was 422 (LFTs normal) at that visit. Lives in separate apt on property with her daughter, swims regularly, no chronic cardiopulmonary disease, not diabetic. PFSH Active Problems All Active Problems (Updated 06/21/24 @ 14:22 by Matilde Lara DO) Acute gallstone pancreatitis (Acute) Chronic back pain (Acute) Acute cholecystitis (Acute) Medical History Medical History (Updated 06/21/24 @ 14:22 by Matilde Lara DO) Osteoporosis History of migraine headaches Surgical History Surgical History (Updated 06/21/24 @ 14:22 by Matilde Lara DO) History of tubal ligation History of History of spinal fusion (~2022) L4-S1 (x2 surgeries) Social History Social History Smoking Status: Never smoker Second hand tobacco smoke exposure: No Do you dip or chew tobacco?: No Do you vape?: No Relationship: Level: Independent Home Mobility Equipment: Walker Do you feel safe in your home environment?: Yes Suffered physical, verbal, emotional, or financial abuse?: No History of Abuse: No POLST Patient has POLST: No Meds/Allgy Home Medications Ambulatory Orders Medication Instructions Recorded Confirmed denosumab 60 mg/mL subcutaneous 60 mg subcut ONCE 08/28/22 10/03/23 syringe (Prolia) sumatriptan 85 mg-naproxen 500 mg 50 mg PO PRN PRN As Needed Per 08/28/22 10/03/23 tablet (Treximet) Provider Orders dicyclomine 10 mg capsule 10 mg PO TID PRN Abdominal Pain 10/03/23 #15 caps hydrocodone 5 mg-acetaminophen 325 1 ea PO Q6H PRN Pain #12 tabs 10/03/23 mg tablet pantoprazole 40 mg tablet,delayed 40 mg PO DAILY 30 days #30 tabs 10/03/23 release cephalexin 500 mg capsule 500 mg PO QID 5 days #20 caps 02/22/24 doxycycline hyclate 100 mg capsule 100 mg PO BID 5 days #10 caps 02/22/24 terbinafine HCl 1 % topical cream 1 applic topical BID #15 grams 02/22/24 Allergies Allergies Allergy/AdvReac Type Severity Reaction Status Date / Time No Known Drug Allergies Allergy Verified 02/22/24 11:38 Results Lab Results 06/21/24 05:41 06/21/24 05:41 Other Lab Results: Lab Results x24hrs 06/21/24 06/21/24 Range/Units 06:00 05:41 WBC 11.0 H (4.8-10.8) x10^3/uL RBC 5.31 (4.20-5.40) 10^6/uL Hgb 15.8 (12.0-16.0) g/dL Hct 48.1 H (37.0-47.0) % MCV 90.6 (81.0-99.0) fL MCH 29.8 (27.0-31.0) pg MCHC 32.8 (32.0-36.0) g/dL RDW 12.4 (12.0-15.0) % Plt Count 231 (130-450) 10^3/uL MPV 11.1 H (7.9-10.8) fL Neut # (Auto) 8.9 H (1.5-6.6) 10^3/uL Lymph # (Auto) 1.5 (1.5-3.5) 10^3/uL Simpson # (Auto) 0.5 (0.0-1.0) 10^3/uL Eos # (Auto) 0.0 (0.0-0.7) 10^3/uL Baso # (Auto) 0.0 (0.0-0.1) 10^3/uL Absolute Nucleated RBC 0.00 x10^3/uL Nucleated RBC % 0.0 /100WBC Sodium 138 (135-145) mmol/L Potassium 4.0 (3.5-4.5) mmol/L Chloride 106 (101-111) mmol/L Carbon Dioxide 25 (21-32) mmol/L Anion Gap 7.0 (6-13) BUN 14 (6-20) mg/dL Creatinine 0.8 (0.6-1.3) mg/dL Estimated GFR (MDRD) 71 L (>89) Glucose 162 H (74-104) mg/dL Lactic Acid 1.7 (0.5-2.2) mmol/L Calcium 9.3 (8.5-10.3) mg/dL Total Bilirubin 2.4 H (0.2-1.0) mg/dL AST 510 H (10-42) IU/L ALT 314 H (10-60) IU/L Alkaline Phosphatase 101 (42-121) IU/L Troponin I High Sens 4.4 (2.3-14.8) ng/L Total Protein 7.2 (6.4-8.9) g/dL Albumin 4.4 (3.2-5.5) g/dL Globulin 2.8 (2.1-4.2) g/dL Albumin/Globulin Ratio 1.6 (1.0-2.2) Lipase > 6000 H (11-82) U/L Diagnostic Imaging Results Diagnostic Imaging Results: positive Read contemporaneously Diagnostic Imaging Results Comments: PROCEDURE: CT Abdomen/Pelvis W INDICATIONS: RUQ abd pain CONTRAST: OMNI 300, 100 TECHNIQUE: After the administration of intravenous contrast, a CT scan of the abdomen and pelvis was performed. Images were recorded and evaluated at appropriate window settings. Reformats: coronal and sagittal. For radiation dose reduction, the following was used: automated exposure control, adjustment of mA and/or kV according to patient size. COMPARISON: CT abdomen and pelvis 10/03/2023. Abdominal ultrasound 08/16/2023. FINDINGS: Image quality: Diagnostic. Lower chest: Unremarkable. Liver: No solid mass. Suspect hepatic steatosis. Gallbladder: Increased conspicuity of the gallbladder wall. There are small layering calcified gallstones at the fundus. Pericholecystic fluid is present, (4). Biliary tree: Within normal limits. Spleen: No splenomegaly. Pancreas: No pancreatic ductal dilation. Inflammatory change and fluid adjacent to the tail the pancreas, (4/41). No loculated fluid collection. The pancreas enhances uniformly. Adrenals: No adrenal nodule. Kidneys and ureters: No hydronephrosis. No renal cystic lesion which requires follow up. No solid mass. Stomach, bowel and peritoneum: There is inflammatory change about the second and third portions of the duodenum. This is demonstrable by fat stranding and free fluid. No loculated fluid collection. No small bowel obstruction. Normal appendix. Stomach is not distended. No pneumoperitoneum. Lymph nodes: No central or retroperitoneal adenopathy. Vessels: No infrarenal aortic aneurysm. Patent portal vein. PELVIS Reproductive organs: Anteverted uterus. Bladder: No abnormal wall thickening. No stone. Pelvic lymph nodes: No pelvic adenopathy by size criteria. Bones: No aggressive osseous abnormality. L4-S1 pedicle screw fixation with intervertebral body spacers. Other: No significant ventral or inguinal hernia. IMPRESSION: 1. Inflammatory change about the pancreas. Suspect acute interstitial edematous pancreatitis. No loculated fluid collection. 2. Pericholecystic fluid. Gallstones at the fundus. Findings raising the possibility of acute cholecystitis. Changes could be secondary reactive. -Gallbladder ultrasound may be helpful for further evaluation. 3. Inflammatory change at the second and third portions of the duodenum in keeping with duodenitis. No significant discrepancy with the overnight preliminary interpretation. Discussed with emergency room provider. Reviewed by: Kieran Berry MD on 06/21/2024 9:22 AM PDT PROCEDURE: US Abdomen Limited INDICATIONS: Gallstone pancreatitis, likely choledocholithiasis TECHNIQUE: Real-time focused scanning was performed of the abdomen, with image documentation. COMPARISONS: CT from same date. FINDINGS: Liver: Echogenic liver with mildly enlarged size measuring 15.9 cm. Gallbladder: Multiple gallstones within the gallbladder with stones at the neck of the gallbladder. The gallbladder wall measures 8 mm. There is pericholecystic fluid. Biliary ducts: Intrahepatic bile ducts are non-dilated. Cystic duct caliber measures 8 mm. Pancreas: The pancreas is poorly visualized however this large and edematous with some peripancreatic fluid. IVC: Intrahepatic inferior vena cava is patent. Miscellaneous: No free abdominal fluid. IMPRESSION: Acute cholecystitis. Edematous pancreas with peripancreatic edema consistent with pancreatitis. Cystic duct measures 8 mm without distal stone identified by ultrasound. Reviewed by: Ld Ortega MD on 06/21/2024 10:16 AM [id number] Review of Systems Status of ROS: 10 or more systems reviewed and unremarkable except as noted in history and below Exam Exam Vital Signs: Vital Signs x48h Temp Pulse Resp BP BP Pulse Ox 06/21/24 13:33 36.9 C 18 153/80 H 99 06/21/24 12:54 78 16 142/82 H 98 06/21/24 11:57 85 16 144/65 H 98 06/21/24 10:00 71 18 188/87 H 98 06/21/24 08:00 74 15 142/88 H 99 06/21/24 06:41 78 22 141/77 H 99 Constitutional normal general appearance, no apparent distress and abnormal body habitus (obese) [facility] normocephalic Eyes conjunctivae normal, no scleral icterus and normal visual lott by confrontation Neck/C-Spine visual inspection normal Respiratory normal respiratory effort Cardiovascular normal heart rate noted Gastrointestinal abdomen soft to palpation, tender to palpation (moderate TTP RUQ > LUQ, + murpheys sign) and distended (mild distension) Extremities normal to inspection Neurology no movement abnormality noted Psychiatry mental status grossly normal and oriented x3 Skin skin color normal Conclusion/Plan Problem List (1) Acute gallstone pancreatitis: Plan: 74yoF admitted today (06/21) with epigastric pain and nausea, workup consistent with both acute cholecystitis and gallstone pancreatitis. Her abdominal pain is moderate, slightly worse on the right than left upper abdomen (pos murpheys), and IV meds are controlling her pain and nausea well at this time. HTN o/w HD normal and AF. Tb 2.4, transaminases 300-500, and lipase >6000. Her CT shows significant inflammation around the gallbladder rim (1cm fluid thickness), moderate inflammation around the pancreas with scant peripancreatic fluid, no large fluid collection. RUQUS shows cholelithiasis, 8mm CBD without CBD stone. - agree with abx for acute cholecystitis - Recommend laparoscopic cholecystectomy this admission, when clinical sign of improving pancreatitis (decreased pain and ttp, increased PO tolerance, downtrending lipase) - suspect that she will be ready for lap vicky within next 24-72hrs - MRCP ordered to rule out choledocholithiasis (none seen on US) - clears/adat I discussed the recommendation for surgery this week and that the surgical team will monitor for clinical signs of improvement to decide which day surgery will be. Explained the high risk of early recurrence of gallstone pancreatitis if no cholecystectomy. She understands and is in agreement with the plan. I discussed the laparoscopic surgery with her but did not complete a consent form. Dr. Ruffin will take over surgical rounding tomorrow. Matilde Lara DO, [facility] General Surgeon, Mickey (2) Acute cholecystitis: Lab Results 06/21/24 05:41 06/21/24 05:41 Diagnostic Imaging Results Diagnostic Imaging Results: positive Read contemporaneously
[2024-06-21 15:34] LABS: BILIRUBIN,URINE NEGATIVE (NEGATIVE); GLUCOSE, URINE (UA) NEGATIVE (NEGATIVE); KETONES,URINE (UA) NEGATIVE (NEGATIVE); LEUKOCYTE ESTERASE, URINE NEGATIVE (NEGATIVE); NITRITE,URINE NEGATIVE (NEGATIVE); OCCULT BLOOD,URINE TRACE-INTA (NEGATIVE); PROTEIN,URINE NEGATIVE (NEGATIVE); UROBILINOGEN,URINE 0.2 (NORMAL) E.U./dL (NORMAL)
[2024-06-21 15:36] LABS: CLARITY,URINE CLEAR (CLEAR)
[2024-06-21 15:42] LABS: BACTERIA,URINE Rare /HPF (None Seen); RBC,URINE 0-5 /HPF (0-5); SQUAMOUS EPITHELIAL CELL,UR FEW Squamous (<= Few); WBC,URINE 0-3 /HPF (0-5)
--- NOTE | 2024-06-21 16:49 | PHARMACY PROGRESS NOTE ---
Best Possible Medication History Admit Date and Time: 06/21/24 233155 Home Medications Medication Instructions Recorded Confirmed Type denosumab 60 mg/mL subcutaneous 60 mg subcut ONCE 08/28/22 06/21/24 History syringe (Prolia) acetaminophen 325 mg tablet (Pain 325 mg PO Q12H PRN pain 06/21/24 06/21/24 Hist ory Relief (acetaminophen)) ibuprofen 200 mg tablet 200 mg PO Q12H PRN pain 06/21/24 06/21/24 History sumatriptan succinate 50 mg tablet 50 mg PO ONCE PRN migraine headache 06/21/24 06/21/24 History Processed by: Pharmacy Medications reviewed in ED?: No Medication History completed: Yes Patient Interview: Completed Secondary Source(s): Insurance records [facility] Statement: Per [facility] interview with patient and review of [employer] records. As the person ultimately responsible for medication therapy, providers are able to order a medication from an existing home medication list in [facility] via the "Reconcile Routine" prior to Confirmation of that medication by support services coordinator. Such practice is discouraged except when the physician, in their clinical judgment, deems that a medical need exists for a medication without regard to previous use.
[2024-06-21] MEDS: HEPARIN 5,000 UNIT/ML VIAL SUBQ SCH (20:56)
[2024-06-21] MEDS: SODIUM CHLORIDE FLUSH 0.9% 10 ML SYRINGE IVP SCH (20:56)
[2024-06-21] MEDS: SUMAtriptan succinate 50 MG TABLET PO PRN (21:09)
[2024-06-21] MEDS: ONDANSETRON 4 MG/2 ML VIAL IVP PRN (22:25)
[2024-06-22 04:37] LABS: BASOPHILS % (AUTO) 0.4 %; EOSINOPHILS # (AUTO) 0.1 10^3/uL (0.0-0.7); EOSINOPHILS % (AUTO) 1.1 %; HCT - HEMATOCRIT 43.2 % (37.0-47.0); HGB - HEMOGLOBIN 14.1 g/dL (12.0-16.0); LYMPHOCYTES # (AUTO) 2.3 10^3/uL (1.5-3.5); LYMPHOCYTES % (AUTO) 28.9 %; MEAN CORPUSCULAR HEMOGLOBIN 29.4 pg (27.0-31.0); MEAN CORPUSCULAR HGB CONC 32.6 g/dL (32.0-36.0); MEAN CORPUSCULAR VOLUME 90.2 fL (81.0-99.0); MEAN PLATELET VOLUME 11.4 fL (7.9-10.8); MONOCYTES # (AUTO) 0.5 10^3/uL (0.0-1.0); MONOCYTES % (AUTO) 6.2 %; NEUTROPHILS # (AUTO) 5.1 10^3/uL (1.5-6.6); NEUTROPHILS % (AUTO) 62.9 %; PLT - PLATELET COUNT 203 10^3/uL (130-450); RED BLOOD COUNT 4.79 10^6/uL (4.20-5.40); RED CELL DISTRIBUTION WIDTH 12.8 % (12.0-15.0); WHITE BLOOD COUNT 8.1 x10^3/uL (4.8-10.8)
[2024-06-22 04:55] LABS: ALBUMIN 3.8 g/dL (3.2-5.5); ALBUMIN/GLOBULIN RATIO 1.5 (1.0-2.2); BILIRUBIN,TOTAL 1.1 mg/dL (0.2-1.0); CREATININE 0.7 mg/dL (0.6-1.3); POTASSIUM 3.2 mmol/L (3.5-4.5); TOTAL PROTEIN 6.3 g/dL (6.4-8.9)
[2024-06-22] MEDS: cefTRIAXone 1 GM in SODIUM CHLORIDE 0.9% MINIBAG 100 ML IV SCH (08:36)
[2024-06-22] MEDS: ACETAMINOPHEN 325 MG TABLET PO PRN (08:36)
--- NOTE | 2024-06-22 09:58 | PROVIDER PROGRESS NOTE ---
Progress Note Progress Note Progress Note: General Surgery Progress Note Hospital Day # 2 Code Status: Full ASSESSMENT: 1) Gallstone pancreatitis. The pancreatitis is resolving and all LFT's are decreasing towards normal. Awaiting results of MRCP PLAN: 1) Clears 2) Ambulate 3) MRCP today - if no evidence of CBDS, cholecystectomy tomorrow 4) Switch from NS to RL with potassium supplementation <><><><><> PERTINENT INTERVAL ISSUES: None S: Feeling better. Still mild epigastric pain. No nausea OBJECTIVE: I/O: 2380/500 VS: BP 140/65; P 87; RR 18; T 37 EXAMINATION: MENTAL STATUS: AAO; Comfortable EYES: Pupils equal, round and reactive to light, sclera anicteric, EARS, NOSE, MOUTH, THROAT: Normal hearing, Oral mucous membranes moist and without lesions; NECK: No crepitus, lymphadenopathy, or thyromegaly LUNGS: Clear to auscultation without wheezing; No use of accessory muscles to breathe CARDIOVASCULAR: Heart-NSR without murmurs; ABD: Soft, minimal epigastric tenderness to palpation; No RUQ pain, tenderness or fullness EXTREMITIES: No clubbing, cyanosis, infections SKIN: Anicteric; No rashes, lesions, ulcerations LABS: H&H 14.1/43.2; WBC 8.1; PLT 203k; NA 138; K 3.2; Cr 0.7; Glu 114 T Bili 1.1; AST 117; ALT 195; Alk Phos 94 Lipase 272 CULTURES: N/A IMAGING: MRCP pending ANTIMICROBIALS: Ceftriaxone/Flagyl PAIN CONTROL: Dilaudid IV prn VTEP: Chemical: Heparin, 5,000 units, SQ, Q 12 hrs Mechanical: DAYAMI Ruffin MD, FACS General Surgery Service
[2024-06-22] MEDS ORDERED: POTASSIUM CHLORIDE 20 MEQ TABLET PO ONE (12:00)
[2024-06-22] MEDS: POTASSIUM CHLORIDE 20 MEQ TABLET PO ONE (12:08)
[2024-06-22] MEDS: POTASSIUM CHLORIDE INJ 20 MEQ in LACTATED RINGERS 1,000 ML IV SCH (12:09)
--- NOTE | 2024-06-22 12:54 | MRI Report ---
PROCEDURE: MRI MRCP WO INDICATIONS: pancreatitis, Bili 2.4 ?choledocholithiasis CONTRAST: None TECHNIQUE: Coronal ultra fast SE through the abdomen, axial 2-D spoiled GE in- and [id number], and breath-hold T2 FSE with fat saturation through the biliary system and pancreas. Oblique coronal and axial thin- slice ultra fast SE, radial thick-slab ultra fast SE centered on the extrahepatic bile ducts. COMPARISON: Ultrasound dated 06/21/2024. CT dated 04/21/2024. FINDINGS: Image quality: Excellent. Gallbladder: Cholelithiasis. No significant gallbladder wall thickening nor surrounding fat stranding . Biliary tree: No intrahepatic biliary ductal dilatation. Mild extrahepatic biliary ductal dilatation. Common bile duct measures 9 mm. There is underfilling of the distal common bile duct with low T2 si gnal intensity within the distal common bile duct measuring 5 mm diameter.. Pancreas: No pancreatic ductal dilation. No significant peripancreatic edema. Lung bases and heart: Unremarkable. Liver: No solid mass. Spleen: No splenomegaly. Adrenals: No adrenal nodule. Kidneys and ureters: No hydronephrosis. No renal cystic lesion which requires follow up. No solid mas s. Bowel and peritoneum: No bowel distension. No pathologic free fluid. Lymph nodes: No central or retroperitoneal adenopathy. Vessels: No infrarenal aortic aneurysm. Bones: No aggressive osseous abnormality. Other: No significant ventral hernia. IMPRESSION: 1. Cholelithiasis. No evidence of cholecystitis by MRI. HIDA scan may be helpful for further assessme nt. 2. Findings suggestive of choledocholithiasis with extrahepatic biliary ductal dilatation. 3. Resolved pancreatitis. Reviewed by: Irish Whaley MD on 06/22/2024 12:53 PM PDT Approved by: Irish Whaley MD on 06/22/2024 12:53 PM PDT Station ID: [id number]
--- NOTE | 2024-06-22 15:20 | PROVIDER PROGRESS NOTE ---
Progress Note Progress Note Progress Note: General Surgery Pre-op Note Sera is 74 year old female with clinical, lab, and image findings consistent with gallstone pancreatitis. Her LFT's and Lipase levels have decreased since admission last evening and her MRCP does not clearly identify choledocholithiasis although the common bile duct is somewhat dilated. It is my recommendation that Sera undergo laparoscopic cholecystectomy, possible open open cholecystectomy tomorrow to give her an additional day for the pancreatitis to resolve. Consent: Sera has been counseled for the procedure, it's indications, risks, benefits and expected outcome. We specifically discussed risks associated with anesthesia, bleeding, infection, injury to surrounding structures which may require additional surgery, and the possible need for conversion to an open procedure. We also discussed the possible need for a blood transfusion with its risks and benefits. Sera understands the content of our discussion and requests that we proceed with the procedure as outlined. Marquise Ruffin MD, [facility] General Surgery Service
[2024-06-22] MEDS: SUMAtriptan succinate 50 MG TABLET PO PRN (16:22)
--- NOTE | 2024-06-22 16:38 | PROVIDER PROGRESS NOTE ---
Subjective Prog Note Date Prog Note Date: 06/22/24 Subjective Subjective: She has had a headache. She is using tylenol which is not helping much. She tried sumatriptan, which she takes at home, and that did not help. Current Medications Current Medications Current Medications: Current Medications Generic Name Dose Route Start Last Admin Trade Name Freq PRN Reason Stop Dose Admin Acetaminophen 650 mg 06/21/24 12:56 06/22/24 08:36 Acetaminophen 325 Mg Tablet PO 650 mg Q4HR PRN Administration Pain 1 to 4, or Fever Heparin Sodium (Porcine) 5,000 unit 06/21/24 21:00 06/22/24 08:37 Heparin 5,000 Unit/Ml Vial SUBQ 5,000 unit BID TESHA Administration Hydromorphone HCl 0.5 mg 06/21/24 12:56 Hydromorphone 0.5 Mg/0.5 Ml Syringe IVP Q2H PRN Pain 8 to 10 Ceftriaxone Sodium 1 gm/ 100 mls @ 200 mls/hr 06/22/24 09:00 06/22/24 10:10 Sodium Chloride IV Infused DAILY TESHA Infusion Metronidazole 500 mg in 100 mls @ 100 mls/hr 06/21/24 12:56 06/22/24 14:08 Flagyl 500 Mg/100 Ml IV Infused Q8H TESHA Infusion Ondansetron HCl 4 mg 06/21/24 12:56 06/21/24 22:25 Ondansetron 4 Mg/2 Ml Vial IVP 4 mg Q6HR PRN Administration Nausea / Vomiting Sodium Chloride 10 ml 06/21/24 12:56 Sodium Chloride Flush 0.9% 10 Ml Syringe IVP PRN PRN NEEDED PER PROVIDER ORDERS Sodium Chloride 10 ml 06/21/24 17:00 06/22/24 16:22 Sodium Chloride Flush 0.9% 10 Ml Syringe IVP 10 ml 0100,0900,1700 TESHA Administration Objective Vital Signs/Intake & Output Reviewed Vital Signs: Yes Vital Signs: Vital Signs x48h Temp Pulse Resp BP Pulse Ox 06/22/24 15:32 37.2 C 77 16 138/78 H 97 Intake & Output: Intake & Output 06/19/24 06/20/24 06/21/24 06/22/24 23:59 23:59 23:59 23:59 Intake Total 1700 / 1700 1999 / 1999 Output Total 400 / 400 100 / 100 Balance 1300 / 1300 1900 / 1900 Weight (kg) 105 kg Objective General Appearance: positive No acute distress and Alert Eyes Bilateral: positive Conjunctivae nml and No scleral icterus ENT: positive ENT inspection nml Neck: positive Nml inspection Respiratory: positive Chest non-tender, No respiratory distress and Breath sounds nml Cardiovascular: positive Regular rate & rhythm Abdomen: positive Tenderness (much less tenderness in the upper abdomen today) Skin: positive Color nml Extremities: positive Non-tender and No pedal edema Neurologic/Psychiatric: positive Oriented x3 Lab Results 06/22/24 04:11 06/22/24 04:11 Other Labs: Lab Results x24hrs 06/22/24 Range/Units 04:11 WBC 8.1 (4.8-10.8) x10^3/uL RBC 4.79 (4.20-5.40) 10^6/uL Hgb 14.1 (12.0-16.0) g/dL Hct 43.2 (37.0-47.0) % MCV 90.2 (81.0-99.0) fL MCH 29.4 (27.0-31.0) pg MCHC 32.6 (32.0-36.0) g/dL RDW 12.8 (12.0-15.0) % Plt Count 203 (130-450) 10^3/uL MPV 11.4 H (7.9-10.8) fL Neut # (Auto) 5.1 (1.5-6.6) 10^3/uL Lymph # (Auto) 2.3 (1.5-3.5) 10^3/uL Sunflower # (Auto) 0.5 (0.0-1.0) 10^3/uL Eos # (Auto) 0.1 (0.0-0.7) 10^3/uL Baso # (Auto) 0.0 (0.0-0.1) 10^3/uL Absolute Nucleated RBC 0.00 x10^3/uL Nucleated RBC % 0.0 /100WBC Sodium 138 (135-145) mmol/L Potassium 3.2 L (3.5-4.5) mmol/L Chloride 108 (101-111) mmol/L Carbon Dioxide 23 (21-32) mmol/L Anion Gap 7.0 (6-13) BUN 10 (6-20) mg/dL Creatinine 0.7 (0.6-1.3) mg/dL Estimated GFR (MDRD) 82 L (>89) Glucose 114 H (74-104) mg/dL Calcium 8.0 L (8.5-10.3) mg/dL Total Bilirubin 1.1 H (0.2-1.0) mg/dL AST 117 H (10-42) IU/L ALT 195 H (10-60) IU/L Alkaline Phosphatase 94 (42-121) IU/L Total Protein 6.3 L (6.4-8.9) g/dL Albumin 3.8 (3.2-5.5) g/dL Globulin 2.5 (2.1-4.2) g/dL Albumin/Globulin Ratio 1.5 (1.0-2.2) Lipase 272 H (11-82) U/L Assessment/Plan Problem List (1) Pancreatitis: Impression: presents to the ED with epigstric abdominal pain, after several episodes of non adherance to a low fat non spicy diet. She has inflammation around her pancreatitis on CT of the abdomen and her lipase on presentation is >6000, today, downtrending to 272 there is no biliary ductal dilation on imaging. MRCP shows underfilling of the distal CBD. discussed with Dr Ruffin, and he will perform IOC at the time of cholecystectomy. She does have an elevated bili of 2.4 indicating probable biliary pancreatitis; bili downtrending today to 1.1. I have placed this patient on a clear liquid diet with supplemental IVF, she will be NPO after MN. . I have ordered medications for pain and nausea. (2) Acute cholecystitis: Impression: Pericholecystic fluid is seen on CT. She remains on rocephin and flagyl (day 2). WBC downtrending to 8.1. Gen surg planning cholecystectomy w IOC on 06/23. (3) Hypokalemia: Impression: K3.2 this AM. I have ordered 20mEq once and dr ruffin has changed fluids to potassium containing fluids. when she is NPO tonight, I will start LR which has 4mEq per L of potassium. I will ck potassium level again in the AM. (4) Chronic back pain: Impression: s/p spinal fusion. She is not on any chronic medications, aside from tylenol and ibuprofen as needed. She is dependent on a walker for ambulation ,but otherwise does well and is independent in her functioning. no current issues. I have spent 52 minutes in the care of this patient today. This includes time [id number], review and ordering of diagnostic imaging and laboratory studies and consultation with other providers.
[2024-06-23 04:57] LABS: BASOPHILS % (AUTO) 0.5 %; EOSINOPHILS # (AUTO) 0.2 10^3/uL (0.0-0.7); EOSINOPHILS % (AUTO) 2.5 %; HCT - HEMATOCRIT 41.6 % (37.0-47.0); HGB - HEMOGLOBIN 13.9 g/dL (12.0-16.0); LYMPHOCYTES # (AUTO) 1.9 10^3/uL (1.5-3.5); LYMPHOCYTES % (AUTO) 25.5 %; MEAN CORPUSCULAR HEMOGLOBIN 30.5 pg (27.0-31.0); MEAN CORPUSCULAR HGB CONC 33.4 g/dL (32.0-36.0); MEAN CORPUSCULAR VOLUME 91.2 fL (81.0-99.0); MONOCYTES # (AUTO) 0.6 10^3/uL (0.0-1.0); MONOCYTES % (AUTO) 8.3 %; NEUTROPHILS # (AUTO) 4.8 10^3/uL (1.5-6.6); NEUTROPHILS % (AUTO) 62.7 %; PLT - PLATELET COUNT 179 10^3/uL (130-450); RED BLOOD COUNT 4.56 10^6/uL (4.20-5.40); RED CELL DISTRIBUTION WIDTH 12.6 % (12.0-15.0); WHITE BLOOD COUNT 7.6 x10^3/uL (4.8-10.8)
[2024-06-23 05:18] LABS: ALBUMIN 3.7 g/dL (3.2-5.5); ALBUMIN/GLOBULIN RATIO 1.5 (1.0-2.2); BILIRUBIN,TOTAL 0.8 mg/dL (0.2-1.0); CALCIUM 7.9 mg/dL (8.5-10.3); CREATININE 0.7 mg/dL (0.6-1.3); POTASSIUM 3.2 mmol/L (3.5-4.5); TOTAL PROTEIN 6.2 g/dL (6.4-8.9)
--- NOTE | 2024-06-23 06:43 | PROVIDER PROGRESS NOTE ---
Progress Note Progress Note Progress Note: General Surgery Progress Note Patient with migraine but otherwise stable. Abdominal pain minimal. Lipase and LFT's returned to normal. Cholecystectomy planned for later this morning. An IOC will be performed to make certain that the CBD is clear. Marquise Ruffin MD, [facility] General Surgery Service
[2024-06-23] MEDS: SUMAtriptan succinate 50 MG TABLET PO PRN (08:34)
[2024-06-23] MEDS ORDERED: iohexoL-240 20 ML VIAL IVP ONE (08:47)
[2024-06-23] MEDS ORDERED: LIDOCAINE 1%-EPI 1:100000 20 ML MDV ONE (08:47)
[2024-06-23] MEDS ORDERED: BUPIVACAINE 0.5% PF 10 ML VIAL ONE (08:48)
[2024-06-23] MEDS: SODIUM CHLORIDE 0.9% 1,000 ML IV SCH (11:37)
[2024-06-23] MEDS: POTASSIUM CHLOR 10 MEQ/100 ML 10 MEQ/100 ML BAG IV SCH (11:37)
[2024-06-23] MEDS ORDERED: ePHEDrine 50 MG/ML VIAL IVP PRN (12:27)
[2024-06-23] MEDS ORDERED: METOCLOPRAMIDE 10 MG/2 ML VIAL IVP PRN (12:27)
[2024-06-23] MEDS ORDERED: ATROPINE ABBOJECT 1 MG/10 ML SYRINGE IVP PRN (12:27)
[2024-06-23] MEDS ORDERED: MORPHINE 2 MG/ML CARPUJECT IVP PRN (12:27)
[2024-06-23] MEDS ORDERED: HYDROmorphone 0.5 MG/0.5 ML SYRINGE IVP PRN (12:27)
[2024-06-23] MEDS ORDERED: NALOXONE 0.4 MG/ML VIAL IVP PRN (12:27)
[2024-06-23] MEDS ORDERED: ONDANSETRON 4 MG/2 ML VIAL IVP PRN (12:27)
--- NOTE | 2024-06-23 12:27 | ANESTHESIA PROCEDURE NOTE ---
Pre-Anesthesia VS, & Labs Diagnosis Surgical Diagnosis:: cholecystitis Procedure Procedure: laparoscopic cholecystectomy with IOC Vitals Vital Signs: Temp Pulse Resp BP Pulse Ox 36.7 C 74 20 140/72 H 96 06/23/24 07:51 06/23/24 07:51 06/23/24 07:51 06/23/24 07:51 06/23/24 07:51 NPO NPO: >8 hours Is Patient ?: No Lab Results Current Lab Results: Laboratory Tests 06/23/24 04:31: WBC 7.6, RBC 4.56, Hgb 13.9, Hct 41.6, MCV 91.2, MCH 30.5, MCHC 33.4, RDW 12.6, Plt Count 179, MPV 11.0 H, Neut # (Auto) 4.8, Lymph # (Auto) 1.9, Hutchinson # (Auto) 0.6, Eos # (Auto) 0.2, Baso # (Auto) 0.0, Absolute Nucleated RBC 0.00, Nucleated RBC % 0.0, Sodium 140, Potassium 3.2 L, Chloride 109, Carbon Dioxide 25, Anion Gap 6.0, BUN 8, Creatinine 0.7, Estimated GFR (MDRD) 82 L, G lucose 117 H, Calcium 7.9 L, Total Bilirubin 0.8, AST 43 H, ALT 116 H, Alkaline Phosphatase 78, Total Protein 6.2 L, Albumin 3.7, Globulin 2.5, Albumin/Globulin Ratio 1.5, Lipase 43 06/22/24 04:11: WBC 8.1, RBC 4.79, Hgb 14.1, Hct 43.2, MCV 90.2, MCH 29.4, MCHC 32.6, RDW 12.8, Plt Count 203, MPV 11.4 H, Neut # (Auto) 5.1, Lymph # (Auto) 2.3, Hutchinson # (Auto) 0.5, Eos # (Auto) 0.1, Baso # (Auto) 0.0, Absolute Nucleated RBC 0.00, Nucleated RBC % 0.0, Sodium 138, Potassium 3.2 L, Chloride 108, Carbon Dioxide 23, Anion Gap 7.0, BUN 10, Creatinine 0.7, Estimated GFR (MDRD) 82 L, G lucose 114 H, Calcium 8.0 L, Total Bilirubin 1.1 H, AST 117 H, ALT 195 H, Alkaline Phosphatase 94, Total Protein 6.3 L, Albumin 3.8, Globulin 2.5, Albumin/Globulin Ratio 1.5, Lipase 272 H 06/21/24 06:00: Lactic Acid 1.7 06/21/24 05:41: WBC 11.0 H, RBC 5.31, Hgb 15.8, Hct 48.1 H, MCV 90.6, MCH 29.8, MCHC 32.8, RDW 12.4, Plt Count 231, MPV 11.1 H, Neut # (Auto) 8.9 H, Lymph # (Auto) 1.5, Hutchinson # (Auto) 0.5, Eos # (Auto) 0.0, Baso # (Auto) 0.0, Absolute Nucleated RBC 0.00, Nucleated RBC % 0.0, Sodium 138, Potassium 4.0, Chloride 106, Carbon Dioxide 25, Anion Gap 7.0, BUN 14, Creatinine 0.8, Estimated GFR (MDRD) 71 L, Glucose 162 H, Calcium 9.3, Total Bilirubin 2.4 H, AST 510 H, ALT 314 H, Alkaline Phosphatase 101, Troponin I High Sens 4.4, Total Protein 7.2, Albumin 4.4, Globulin 2.8, Albumin/Globulin Ratio 1.6, Lipase > 6000 H Lab results reviewed: Yes 06/23/24 04:31 06/23/24 04:31 Meds/Allgy Home Medications Ambulatory Orders Medication Instructions Recorded Confirmed denosumab 60 mg/mL subcutaneous 60 mg subcut ONCE 08/28/22 06/21/24 syringe (Prolia) acetaminophen 325 mg tablet (Pain 325 mg PO Q12H PRN pain 06/21/24 06/21/24 Relief (acetaminophen)) ibuprofen 200 mg tablet 200 mg PO Q12H PRN pain 06/21/24 06/21/24 sumatriptan succinate 50 mg tablet 50 mg PO ONCE PRN migraine headache 06/21/24 06/21/24 Allergies Allergies Allergy/AdvReac Type Severity Reaction Status Date / Time No Known Drug Allergies Allergy Verified 02/22/24 11:38 PFSH Active Problems All Active Problems (Updated 06/22/24 @ 16:45 by GOLDEN Raymond) Hypokalemia (Acute) Acute gallstone pancreatitis (Acute) Chronic back pain (Acute) Acute cholecystitis (Acute) Medical History Medical History (Updated 06/22/24 @ 16:45 by GOLDEN Raymond) Osteoporosis History of migraine headaches Surgical History Surgical History (Updated 06/21/24 @ 14:22 by Matilde Lara DO) History of tubal ligation History of History of spinal fusion (~2022) L4-S1 (x2 surgeries) Social History Social History Smoking Status: Never smoker Second hand tobacco smoke exposure: No Do you dip or chew tobacco?: No Do you vape?: No Relationship: Level: Independent Home Mobility Equipment: Walker Do you feel safe in your home environment?: Yes Suffered physical, verbal, emotional, or financial abuse?: No History of Abuse: No POLST Patient has POLST: No Anesthesia Exam (Expanded) Exam General: Alert, Oriented x3 and Cooperative Dental: WNL Mouth Openin Fingerbreadth Neck Mobility: Normal Mallampati classification: II Thyromental Distance: 4-6 cm Respiratory: Lungs clear, Normal breath sounds and No respiratory distress Cardiovascular: Regular rate Neurological: Normal gait and Normal speech Mental/Cognitive Status: Alert/Oriented X3 and Normal for patient Cognitive Status: Within normal limits Exam Exam Vital Signs: Vital Signs x48h Temp Pulse Resp BP Pulse Ox 06/23/24 07:51 36.7 C 74 20 140/72 H 96 Plan Problem List (1) Pancreatitis: Plan: presents to the ED with epigstric abdominal pain since about 4pm on day prior, after several episodes of non adherance to a low fat non spicy diet. she has radiation of her pain to her back. She is nauseated. She has inflammation around her pancreatitis on CT of the abdomen and her lipase is >6000. there is no biliary ductal dilation on imaging. She does have an elevated bili of 2.4 indicating probable biliary pancreatitis. I have ordered repeat CMP in the AM. Dr Lara would like repeat lipase in the AM. I have placed this patient on a clear liquid diet with supplemental IVF. I have ordered medications for pain and nausea. I have ordered MRCP of the abdomen to further investigate for choledocholithiasis. (2) Acute cholecystitis: Plan: She has epigastric and RUQ abdominal pain w nausea. She has not vomited. she has a leukocytosis of 11. she has pericholecystic fluid seen on CT of the abdomen. She has multiple gallstones in the neck of the gallbladder without ductal dilation. I will repeat CBC in the AM. I have continued rocephin and flagyl which were started in the ED. I have discussed this patient with Dr Lara of general surgery. This patient would benefit from cholecystectomy to treat her cholecystitis, once her biliary pancreatitis is somewhat improved. She will be followed by general surgery. (3) Hypokalemia: (4) Chronic back pain: Plan: s/p spinal fusion. She is not on any chronic medications, aside from tylenol and ibuprofen as needed. She is dependent on a walker for ambulation ,but otherwise does well and is independent in her functioning. Plan Admission for pancreatitis with elevated lipase, this is likely biliary pancreatitis. MRCP to evaluate for choledocholithiasis. She also has acute cholecystitis. I have placed her on rocephin and flagyl to treat this and consulted with general surgery for cholecystectomy . I have spent 78 minutes in the care of this patient today. This includes time [id number], review and ordering of diagnostic imaging and laboratory studies and consultation with other providers. Monitoring the patient's signs symptoms, evaluation of medication effectiveness and patient's response to treatment. Plan Anesthesia Type: General Consent for Procedure(s) Verified and Reviewed: Yes Code Status: Attempt Resuscitation ASA Classification ASA classification: 2-Mild systemic disease Is this case an emergency?: No
[2024-06-23] MEDS ORDERED: SEVOFLURANE 250 ML LIQUID INH ONE (12:30)
[2024-06-23] MEDS ORDERED: LIDOCAINE-PF 2% 10 ML AMP SUBQ ONE (12:31)
[2024-06-23] MEDS ORDERED: ROCURONIUM 50 MG/5 ML VIAL ONE (12:31)
[2024-06-23] MEDS ORDERED: fentaNYL 100 MCG/2 ML VIAL ONE ×2 (12:32→15:29)
[2024-06-23] MEDS ORDERED: ONDANSETRON 4 MG/2 ML VIAL ONE ×2 (13:21→15:03)
[2024-06-23] MEDS ORDERED: DEXAMETHASONE 4 MG/ML VIAL ONE (13:21)
[2024-06-23] MEDS ORDERED: LABETALOL 5 MG/1 ML 20 ML MDV ONE (14:01)
[2024-06-23] MEDS ORDERED: ACETAMINOPHEN 1,000 MG/100 ML 1,000 MG/100 ML BAG IV ONE (14:01)
[2024-06-23] MEDS ORDERED: SUGAMMADEX 200 MG/2 ML VIAL IVP ONE (14:23)
--- NOTE | 2024-06-23 14:53 | ANESTHESIA POST OP EVALUATION ---
Anesthesia Post Eval Post Anesthesia Eval Vitals: Last Vital Signs Temp 36.7 C 06/23/24 07:51 Pulse 74 06/23/24 07:51 Resp 20 06/23/24 07:51 BP 140/72 H 06/23/24 07:51 Pulse Ox 96 06/23/24 07:51 CV Function Including HR & BP: Stable Pain Control: Satisfactory Nausea & Vomiting: Negative Mental Status: Baseline Respiratory Status: Airway Patent Hydration Status: Satisfactory Anesthesia Complications: None
--- NOTE | 2024-06-23 14:58 | OPERATIVE REPORT ---
Operative Report General Admit Date: 06/21/24 Procedure Data: Operation Date: 06/23/24 13:00 Proposed Procedures p Laparoscopic Cholecystectomy POSSIBLE OPEN(Not Applicable) - Marquise Ruffin MD Actual Procedures p Laparoscopic Cholecystectomy with attempted IOC(Not Applicable) - Marquise Ruffin MD Pre-Op Diagnosis: cholecystitis,pancreatitis Anesthesia Type General Case Staff Anesthesia Provider: Nathaniel Prajapati Case Times Procedure Start: 06/23/24 13:29 Procedure End: 06/23/24 14:37 Time out: 06/23/24 13:27 Other Other Information/Narrative: PROCEDURE DATE: 06/23/2024 PREOPERATIVE DIAGNOSIS: Gallstone pancreatitis. POSTOPERATIVE DIAGNOSIS: Gallstone pancreatitis NAME OF PROCEDURE: Laparoscopic cholecystectomy, Attempted intra-operative cholangiogram SURGEON: Marquise Ruffin MD, FACS ATOMIC WELDER: Chemistry Associate ANESTHESIA: General endotracheal ESTIMATED BLOOD LOSS: 10 mL DRAINS: None SPECIMEN: Gallbladder/Stones COMPLICATIONS: None DESCRIPTION OF OPERATIVE FINDINGS: The gallbladder appeared normal although adhe sions to the neck were easily dissected due to inflammation associated with her resolving pancreatitis. There was a small stone lodged in the cystic duct that was causing obstruction of the gallbladder. The cystic duct distal to the stone was stricturted and did not permit passage of the cholangiocatheter. DESCRIPTION OF OPERATION FOLLOWS: After consent for the procedure was obtained, the patient was brought to the operating room where in the supine position general endotracheal anesthesia was administered. The abdomen was prepped with alcohol-free chloroprep and draped in a sterile fashion after a surgical time-out was performed indicating the patient and the procedure to be performed. Pneumoperitoneum was achieved through a subumbilical incision using a Lisset cannula and an open technique. A 10 mm non-cutting laparoscopic port was placed in the sub-xiphoid region and two 5 mm noncutting ports were placed in the right upper quadrant; one in the mid-clavicular line and one in the anterior axillary line. Each of the port sites were infiltrated with 1% Lidocaine with epinephrine in a 50/50 mix with 1/4% Marcaine mixture prior making the incisions. The patient was placed in the steep reverse Trendelenburg position and rolled to the left. Inspection of the right upper quadrant revealed the above noted findings. The gallbladder was grasped on the fundus and retracted superiorly and anteriorly. Adhesions between the gallbladder and duodenum were gently teased off the anterior wall of the gallbladder and then the neck of the gallbladder was identified. The neck was grasped and retracted laterally. The cystic duct was identified as it coursed from the gallbladder towards the common duct. The cystic artery was similarly identified with the liver bed visualized posterior to both structures. The cystic duct was clipped adjacent to the gallbladder wall and a cystic ductotomy was made adjacent to the obstructiing 1 mm stone. The stone was removed and retrieved. There was no backflow through the cystic ductotomy. Palpation and milking of the cystic duct identified no further stones or bile. A cholangiocatheter was placed through a 5th 5mm port site but despite multiple attempts I could not pass the catheter into the cystic duct. Since the patient's LFT's and lipase were improving and since the MRCP did not definitively identify a common bile duct stone, I decided to abort any further efforts to obtain a cholangiogram. The cystic duct was clipped and transected. The cystic artery was clipped proximally and distally and transected. The gallbladder was then removed from the liver bed using electrocautery and brought out through the subxiphoid port using an endo-catch device. There was minimal bleeding during the dissection. Reinspection of the right upper quadrant revealed no evidence of bleeding or bile leakage from the previous dissection site. The right upper quadrant was irrigated with warm sterile saline. The irrigant was aspirated. A search was made for sponges, packs, instruments, and needles. None were found. The sponge, pack, instrument, and needle counts were relayed to me as being correct. The sub-xiphoid port site fascia was closed with a 2-0 Vicryl under direct vision using an endo-close device. The pneumoperitoneum was released. The laparoscopic port sleeves were removed and there was no evidence of bleeding from the laparoscopic port sleeve sites upon release of the pneumoperitoneum. A search was made for sponges, packs, instruments, and needles. None were found. The sponge, pack, instrument, and needle counts were relayed to me as being correct. The Lisset canula was removed and the patient was placed into the supine position. The subumbilical incision was closed with 0 Vicryl for the linea alba. The skin was closed with interrupted 4-0 Vicryl in a subcuticular fashion with Steri-Strips to reinforce the epidermis. Dressings were placed. The patient tolerated the procedure well and was brought to the Recovery Room with stable signs.
[2024-06-23] MEDS ORDERED: HYDROmorphone 0.5 MG/0.5 ML SYRINGE ONE (15:01)
[2024-06-23] MEDS: HYDROmorphone 0.5 MG/0.5 ML SYRINGE IVP PRN (15:18)
[2024-06-23] MEDS: LACTATED RINGERS 1,000 ML IV SCH (15:21)
[2024-06-23] MEDS: fentaNYL 100 MCG/2 ML VIAL IVP PRN (15:30)
[2024-06-23 15:49] VITALS: BP 149/74
[2024-06-23] MEDS ORDERED: DENOSUMAB 60 MG/ML SUBQ SCH (16:00)
[2024-06-23] MEDS ORDERED: oxyCODONE 5 MG TABLET PO PRN (16:00)
--- NOTE | 2024-06-23 18:14 | PROVIDER PROGRESS NOTE ---
Subjective Prog Note Date Prog Note Date: 06/23/24 Subjective Subjective: She is in a lot of pain this afternoon. pain under her rib cage, left >right. No other complaints. pain meds helping some, not hungry, thinks she would like some ice cream later. Current Medications Current Medications Current Medications: Current Medications Generic Name Dose Route Start Last Admin Trade Name Freq PRN Reason Stop Dose Admin Acetaminophen 650 mg 06/21/24 12:56 06/23/24 16:23 Acetaminophen 325 Mg Tablet PO 650 mg Q4HR PRN Administration Pain 1 to 4, or Fever Heparin Sodium (Porcine) 5,000 unit 06/21/24 21:00 06/23/24 07:49 Heparin 5,000 Unit/Ml Vial SUBQ Not Given BID TESHA Hydromorphone HCl 0.5 mg 06/21/24 12:56 06/23/24 18:08 Hydromorphone 0.5 Mg/0.5 Ml Syringe IVP 0.5 mg Q2H PRN Administration Pain 8 to 10 Ibuprofen 200 mg 06/23/24 16:07 Ibuprofen 400 Mg Tablet PO Q12H PRN Mild Pain (Level 1-3) Ondansetron HCl 4 mg 06/21/24 12:56 06/23/24 15:18 Ondansetron 4 Mg/2 Ml Vial IVP 4 mg Q6HR PRN Administration Nausea / Vomiting Oxycodone HCl 5 mg 06/23/24 16:00 Oxycodone 5 Mg Tablet PO Q4HR PRN Moderate Pain (Level 4-6) Sodium Chloride 10 ml 06/21/24 12:56 Sodium Chloride Flush 0.9% 10 Ml Syringe IVP PRN PRN NEEDED PER PROVIDER ORDERS Sodium Chloride 10 ml 06/21/24 17:00 06/23/24 16:18 Sodium Chloride Flush 0.9% 10 Ml Syringe IVP 10 ml 0100,0900,1700 TESHA Administration Sumatriptan Succinate 50 mg 06/23/24 07:54 06/23/24 08:34 Sumatriptan Succinate 50 Mg Tablet PO 06/25/24 07:53 50 mg ONCE PRN Administration migraine headache Objective Vital Signs/Intake & Output Vital Signs: Vital Signs x48h Temp Pulse Pulse Resp BP BP Pulse Ox 06/23/24 16:45 37.1 C 72 96 H 160/83 H 06/23/24 16:30 36.5 C 66 92 H 153/77 H 06/23/24 16:15 36.7 C 67 16 146/75 H 94 06/23/24 16:00 36.3 C L 64 16 148/80 H 96 06/23/24 15:41 36.4 C L 60 20 142/82 H 98 06/23/24 15:40 98 06/23/24 15:35 71 14 97 06/23/24 15:30 67 17 100 06/23/24 15:25 67 18 99 06/23/24 15:25 60 20 98 06/23/24 15:25 36.4 C L 06/23/24 15:20 66 17 90 L 06/23/24 15:11 59 L 23 98 06/23/24 15:06 65 19 97 06/23/24 15:06 66 19 93 06/23/24 15:00 63 17 96 06/23/24 14:59 36.4 C L 78 14 142/82 H 96 06/23/24 14:55 60 12 97 06/23/24 14:51 69 12 98 06/23/24 14:47 66 21 99 06/23/24 14:46 97 06/23/24 14:45 36.4 C L 14 Intake & Output: Intake & Output 06/20/24 06/21/24 06/22/24 06/23/24 23:59 23:59 23:59 23:59 Intake Total 1700 / 1700 3470 / 3470 874 / 874 Output Total 400 / 400 100 / 100 Balance 1300 / 1300 3370 / 3370 874 / 874 Weight (kg) 105 kg Lab Results 06/23/24 04:31 06/23/24 04:31 Other Labs: Lab Results x24hrs 06/23/24 Range/Units 04:31 WBC 7.6 (4.8-10.8) x10^3/uL RBC 4.56 (4.20-5.40) 10^6/uL Hgb 13.9 (12.0-16.0) g/dL Hct 41.6 (37.0-47.0) % MCV 91.2 (81.0-99.0) fL MCH 30.5 (27.0-31.0) pg MCHC 33.4 (32.0-36.0) g/dL RDW 12.6 (12.0-15.0) % Plt Count 179 (130-450) 10^3/uL MPV 11.0 H (7.9-10.8) fL Neut # (Auto) 4.8 (1.5-6.6) 10^3/uL Lymph # (Auto) 1.9 (1.5-3.5) 10^3/uL [place] # (Auto) 0.6 (0.0-1.0) 10^3/uL Eos # (Auto) 0.2 (0.0-0.7) 10^3/uL Baso # (Auto) 0.0 (0.0-0.1) 10^3/uL Absolute Nucleated RBC 0.00 x10^3/uL Nucleated RBC % 0.0 /100WBC Sodium 140 (135-145) mmol/L Potassium 3.2 L (3.5-4.5) mmol/L Chloride 109 (101-111) mmol/L Carbon Dioxide 25 (21-32) mmol/L Anion Gap 6.0 (6-13) BUN 8 (6-20) mg/dL Creatinine 0.7 (0.6-1.3) mg/dL Estimated GFR (MDRD) 82 L (>89) Glucose 117 H (74-104) mg/dL Calcium 7.9 L (8.5-10.3) mg/dL Total Bilirubin 0.8 (0.2-1.0) mg/dL AST 43 H (10-42) IU/L ALT 116 H (10-60) IU/L Alkaline Phosphatase 78 (42-121) IU/L Total Protein 6.2 L (6.4-8.9) g/dL Albumin 3.7 (3.2-5.5) g/dL Globulin 2.5 (2.1-4.2) g/dL Albumin/Globulin Ratio 1.5 (1.0-2.2) Lipase 43 (11-82) U/L Assessment/Plan Problem List (1) Acute cholecystitis: Impression: Predominant issue is post operative pain this afternoon. she is POD #0, lap vicky. She is doing overall well. Will check bilirubin in the AM. no IOC due to technical issues with cannulation of duct at time of surgery, but no reason to think she has a retained stone. advance diet as tolerated. Pain control is ordered. no indication for post op abx as GB appeared Nl at time of surgery (2) Pancreatitis: Impression: presents to the ED with epigstric abdominal pain, after several episodes of non adherance to a low fat non spicy diet. She has inflammation around her pancreatitis on CT of the abdomen and her lipase on presentation is >6000, today, downtrending to 272, and now to 43. there is no biliary ductal dilation on imaging. MRCP shows underfilling of the distal CBD. At the time of cholecystectomy, stone was extracted from the cystic duct. IOC not able to be obtained. Pancreatitis resolved. . (3) Hypokalemia: Impression: 3.2 despite repletion. aggressively repleted today with 40mEq Kcl IV. will check repeat K in the AM. (4) Chronic back pain: Impression: with dysfunction. Walker dependent at baseline. Will see how she does with post op mobilization. may need PT and OT evaluations. She is very active at baseline, given her disabilities and chronic discomfort. I have spent 38 minutes in the care of this patient today. This includes time [id number], review and ordering of diagnostic imaging and laboratory studies and consultation with other providers. Monitoring the patient's signs symptoms, evaluation of medication effectiveness and patient's response to treatment.
[2024-06-23] MEDS: IBUPROFEN 400 MG TABLET PO PRN (19:28)
[2024-06-24 05:46] LABS: BASOPHILS % (AUTO) 0.2 %; EOSINOPHILS % (AUTO) 0.1 %; HCT - HEMATOCRIT 41.5 % (37.0-47.0); HGB - HEMOGLOBIN 13.2 g/dL (12.0-16.0); LYMPHOCYTES # (AUTO) 1.7 10^3/uL (1.5-3.5); MEAN CORPUSCULAR HEMOGLOBIN 29.9 pg (27.0-31.0); MEAN CORPUSCULAR HGB CONC 31.8 g/dL (32.0-36.0); MEAN CORPUSCULAR VOLUME 94.1 fL (81.0-99.0); MEAN PLATELET VOLUME 11.5 fL (7.9-10.8); MONOCYTES # (AUTO) 0.8 10^3/uL (0.0-1.0); NEUTROPHILS # (AUTO) 8.2 10^3/uL (1.5-6.6); NEUTROPHILS % (AUTO) 76.1 %; PLT - PLATELET COUNT 186 10^3/uL (130-450); RED BLOOD COUNT 4.41 10^6/uL (4.20-5.40); RED CELL DISTRIBUTION WIDTH 12.7 % (12.0-15.0); WHITE BLOOD COUNT 10.8 x10^3/uL (4.8-10.8)
[2024-06-24 06:01] LABS: ALBUMIN 3.6 g/dL (3.2-5.5); ALBUMIN/GLOBULIN RATIO 1.6 (1.0-2.2); BILIRUBIN,TOTAL 0.6 mg/dL (0.2-1.0); CALCIUM 7.3 mg/dL (8.5-10.3); CREATININE 0.6 mg/dL (0.6-1.3); POTASSIUM 3.7 mmol/L (3.5-4.5); TOTAL PROTEIN 5.8 g/dL (6.4-8.9)
--- NOTE | 2024-06-24 06:46 | PROVIDER PROGRESS NOTE ---
Progress Note Progress Note Progress Note: General Surgery Progress Note Hospital Day # 4 - Gallstone pancreatitis POD # 1, Laparoscopic cholecystectomy Code Status: Full ASSESSMENT: 1) No immediate post-op issues PLAN: 1) Advance diet 2) OK to discharge to home today DISCHARGE INSTRUCTIONS: Diet: As tolerated Activity: Be active, but remember, if it hurts to do, don't do it Meds: Use all regular meds as usual For pain control: Tylenol 650 mg orally 4 x a day for next 3 days, then 4 x a day as needed Ibuprofen 400 mg orally 3 x a day with meals for the next 3 days, then 3 x a day with meals as needed Wound Care: Leave the wounds covered with a band aid for 24 hours. Then, remove the brown band aids and shower gently over the white steri-strips. Leave the steri-strips on until they fall off or removed in the office. Use a band aid over the wounds if they are bothered by your clothing. Follow-up: General Surgery clinic in 7-10 days or sooner as needed. Our clinic staff will contact you for an appointment date. Call the clinic at with questions or concerns <><><><><> PERTINENT INTERVAL ISSUES: None S: Feels better. No nausea or emesis. Tolerating Liquids. Urinating. Port site pain under good control without narcotics OBJECTIVE: I/O: Not recorded VS: BP 140/69; P 70; RR 16; T 37 EXAMINATION: MENTAL STATUS: AAO; Comfortable EYES: Pupils equal, round and reactive to light, sclera anicteric, EARS, NOSE, MOUTH, THROAT: Normal hearing, Oral mucous membranes moist and without lesions; NECK: No crepitus, lymphadenopathy, or thyromegaly LUNGS: Clear to auscultation without wheezing; No use of accessory muscles to breathe CARDIOVASCULAR: Heart-NSR without murmurs; ABD: Soft, non-tender, Port site bandages clean and dry; + BS EXTREMITIES: No clubbing, cyanosis, infections SKIN: Anicteric; No rashes, lesions, ulcerations LABS: WBC 10.8; H&H 41.5/13.2; PLT 186k; NA 138; K 3.7; Cr 0.6; Glu 125 AST 33; ALT 82: TB 0.6 CULTURES: N/A IMAGING: None today ANTIMICROBIALS: Prophylactic completed PAIN CONTROL: Dilaudid IV prn, Oxycodone PO prn, Acetaminophen VTEP: Chemical: Heparin, 5,000 units, SQ, Q 12 hrs Mechanical: SCD Marquise Ruffin MD, FACS General Surgery Service
[2024-06-24 07:58] VITALS: BP 141/67; TEMP 97.9; O2SAT 98
--- NOTE | 2024-06-24 11:38 | Discharge Summary ---
Discharge Summary Admit Date: 06/21/24 Discharge Date: 06/24/24 Discharging Provider: Keo Carlos NP Primary Care Provider: Anabel Haq Code Status: Attempt Resuscitation DIAGNOSES Admission Diagnoses: Biliary acute pancreatitis Acute cholecystitis Chronic back pain Discharge Diagnoses with Status of Each Condition: Biliary acute pancreatitis Resolved Acute cholecystitispostop cholecystectomy Chronic back painchronic HPI History of Present Illness: 74-year-old female who presents to the emergency department today with worsening abdominal pain for approximately 24 hours. The pain is in the epigastrium. She states that she has had a worse diet in the last week or so. She knows she is supposed to stay away from fatty foods and spicy foods but unfortunately she had several meals that were outside of these parameters in the last week. Yesterday afternoon about 4 PM the pain became very bad. It is in her epigastrium and into the right and left upper quadrants. She also has noted some radiation into her back. She has not had any fevers she is having nausea without vomiting. 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 She is also known that she has had some sort of a gallbladder problem but it seems to get a little bit worse and then she is better with her diet and it gets a little bit better and she is able to ignore it. She also has a history of hepatic steatosis. She has a history of metformin spine disease. She has had several surgeries. She has chronic weakness of her lower extremities and she walks with a walker. It is been like this for 11 years. She has chronic urinary incontinence. Her surgical history consists of a and tubal ligation. L4-S1 spinal fusion- she has had multiple spine surgeries and has residual lower ext weakness as a result. She does not have any chronic neurogenic bowel or bladder issues She denies heart and lung disease. Her mother had a cholecystectomy She lives with her daughter. She does not smoke. she does not drink alcohol. she has no tobacco history. she does not use cannabis. she drives, and walks [place] [employer] and swims 3 times a week in the pool there. HOSPITAL COURSE Hospital Course: She was just admitted into the hospital and placed on bowel rest with eventual resolution of her pancreatitis. She underwent lap vicky yesterday, and is tolerating diet today. She is being discharged with instructions to follow-up with general surgery ALLERGIES Allergies Allergy/AdvReac Type Severity Reaction Status Date / Time No Known Drug Allergies Allergy Verified 02/22/24 11:38 MEDICATIONS Ambulatory Orders Medication Instructions Recorded Confirmed denosumab 60 mg/mL subcutaneous 60 mg subcut ONCE 08/1806/21/24 syringe (Prolia) acetaminophen 325 mg tablet (Pain 325 mg PO Q12H PRN p ain 06/21/24 06/21/24 Relief (acetaminophen)) ibuprofen 200 mg tablet 200 mg PO Q12H PRN pain 06/1206/21/24 sumatriptan succinate 50 mg tablet 50 mg PO ONCE PRN m igraine headache 06/21/24 06/21/24 PHYSICAL EXAM AT DISCHARGE Vital Signs: Vital Signs x48h Temp Pulse Resp BP Pulse Ox 06/24/24 07:57 36.6 C 68 20 141/67 H 98 General Appearance: positive No acute distress and Alert Eyes Bilateral: positive Normal inspection ENT: positive ENT inspection nml Neck: positive Nml inspection Respiratory: positive Chest non-tender Cardiovascular: positive Regular rate & rhythm Peripheral Pulses: positive 2+ Abdomen: positive Tenderness (Mild incisional tenderness) Skin: positive Color nml Extremities: positive Non-tender Neurologic/Psychiatric: positive Oriented x3 LABS 06/24/24 05:35 06/24/24 05:35 FOLLOW UP Follow Up: With PCP, general surgery TIME SPENT Time Spent in Discharge (Minutes): 35 Discharge Plan Discharge Patient Disposition: Home, Self Care Medically Cleared Date:: 06/24/24 Prescriptions: Continued Prolia 60 MG/ML syringe 60 mg subcut ONCE Patient Comments: twice per year, says she took about a month ago (as of 06/21/24) sumatriptan succinate 50 mg tablet 50 mg PO ONCE PRN (Reason: migraine headache) Patient Comments: TAKE 1 TABLET BY MOUTH NEEDED FOR MIGRAINE, MAY REPEAT EVERY 2 HOURS TO MAX OF 4 TABLETS IN 24 HOURS ibuprofen 200 mg tablet 200 mg PO Q12H PRN (Reason: pain) acetaminophen [Pain Relief (acetaminophen)] 325 mg tablet 325 mg PO Q12H PRN (Reason: pain) Activity Restrictions: Activity as Tolerated Diet: Regular Health Concerns: You came into the hospital with gallstone pancreatitis. You went to the OR yesterday for cholecystectomy. Lab work shows that your pancreatitis has resolved, and your liver levels are trending towards normal. You are doing much better today, and the surgeon says that you are okay to go home. He has detailed instructions as below regarding ongoing care. Please contact a provider if you start to have worsening abdominal pain or any fevers. Discharge instructions per surgery: Diet: As tolerated Activity: Be active, but remember, if it hurts to do, don't do it Meds: Use all regular meds as usual For pain control: Tylenol 650 mg orally 4 x a day for next 3 days, then 4 x a day as needed Ibuprofen 400 mg orally 3 x a day with meals for the next 3 days, then 3 x a day with meals as needed Wound Care: Leave the wounds covered with a band aid for 24 hours. Then, remove the brown band aids and shower gently over the white steri-strips. Leave the steri-strips on until they fall off or removed in the office. Use a band aid over the wounds if they are bothered by your clothing. Follow-up: General Surgery clinic in 7-10 days or sooner as needed. Our clinic staff will contact you for an appointment date. Call the clinic at with questions or concerns Print Language: Ghanaian Patient Instructions: Surgery Anesthesia After Stand Alone Forms: PCP List Follow-up Care: ANABEL HAQ MD [Primary Care Provider] -
== END 2024-06-24 14:27 | disposition home or self-care (01) | DRG 418 ==
LOC: ED 03:49 → MS3 12:10
PROVIDERS: ADMIT Physician Assistant Medical; ATTEND Physician Assistant Medical
DX: K85.10 Biliary acute pancreatitis without necrosis or infection; K81.0 Acute cholecystitis; Z68.41 Body mass index [BMI] 40.0-44.9, adult; E87.6 Hypokalemia; M54.9 Dorsalgia, unspecified; R29.898 Other symptoms and signs involving the musculoskeletal system; G89.29 Other chronic pain; Z98.1 Arthrodesis status; R51.9 Headache, unspecified; R32 Unspecified urinary incontinence; K85.90 Acute pancreatitis without necrosis or infection, unspecified; E66.9 Obesity, unspecified